=== PATIENT | male | born 1980 | race Caucasian/White ===

== ENCOUNTER 2020-06-05 15:35 | Emergency (ER) | payer MEDICAID ==
[~2020-06-05] VITALS: Ht 177.8 cm; Wt 72.6 kg
[2020-06-05 15:46] VITALS: BP 104/59
[2020-06-05] MEDS ORDERED: cefTRIAXone W LIDOCAINE 1 GM IM IM ONE (16:00)
== END 2020-06-05 16:29 | disposition home or self-care (01) ==
LOC: EDBD 15:35 → ER 15:35
DX: L03.012 Cellulitis of left finger (principal)
CPT/HCPCS: 73130; 96372; 99283; J0696

== ENCOUNTER 2021-03-16 12:23 | Inpatient (IN) | payer MEDICAID ==
[~2021-03-16] VITALS: Ht 180.3 cm; Wt 81.9 kg
[2021-03-16] MEDS ORDERED: SODIUM CHLORIDE 0.9% 500 ML IV ONE (12:30)
[2021-03-16 12:59] LABS: Urine WBC None Seen /hpf (0 - 3)
[2021-03-16 13:07] LABS: Urine Bacteria NONE SEEN /hpf (None Seen); Urine Blood Negative /uL (Negative); Urine Specific Gravity 1.009 (1.001-1.035)
[2021-03-16 13:27] LABS: Alcohol, Urine < 3.0 mg/dL (0-10); Amphetamine Screen, Urine POSITIVE (NEGATIVE); Barbiturate Scree,Urine NEGATIVE (NEGATIVE); Benzodiazephine Screen, Urine NEGATIVE (NEGATIVE); Cannabinoid Screen, Urine POSITIVE (NEGATIVE); Cocaine Screen, Urine NEGATIVE (NEGATIVE)
[2021-03-16 13:39] LABS: Basophils # (auto) 0.1 10 ^3/uL (0-0.2); Basophils % (auto) 1.5 % (0.0-2.0); Eosinophils # (auto) 0.3 10 ^3/uL (0-0.8); Eosinophils % (auto) 3.5 % (0.0-7.0); Hematocrit 39.3 % (41.0-53.0); Hemoglobin 13.4 g/dL (13.5-17.5); Lymphocytes # (auto) 1.2 10 ^3/uL (0.4-5.4); Lymphocytes % (auto) 15.6 % (10.0-50.0); Mean Corpuscular Hemoglobin 31.6 pg (28.0-32.0); Mean Corpuscular Volume 92.9 fL (80.0-100.0); Monocytes # (auto) 0.9 10 ^3/uL (0-1.3); Monocytes % (auto) 10.9 % (0.0-12.0); Neutrophils # (auto) 5.4 10 ^3/uL (1.6-8.6); Neutrophils % (auto) 68.5 % (37.0-80.0); Red Blood Cells 4.23 10^6/uL (4.5-5.90); Red Cell Distribution Width 13.9 % (11.8-14.3); White Blood Cell 7.9 10^3/uL (4.4-10.8)
[2021-03-16 13:41] LABS: Opiate Scree,Urine NEGATIVE (NEGATIVE); Phencyclidine Screen, Urine NEGATIVE (NEGATIVE)
[2021-03-16] MEDS ORDERED: HYDROcodone-ACET 10/325MG TAB ONE (14:21)
[2021-03-16] MEDS ORDERED: HYDROcodone-ACET 10/325MG TAB PO ONE (14:30)
[2021-03-16 14:47] LABS: Alanine Aminotransferase 53 U/L (16-61); Albumin 2.6 g/dL (3.4-5.0); Alkaline Phosphatase 126 U/L (45-117); Anion Gap 6 (5-15); Aspartate Aminotransferase 62 U/L (15-37); BUN/Creatinine Ratio 20.7; Bilirubin, Total 0.9 mg/dL (0.2-1.0); Blood Alcohol < 3.0 mg/dL (0-5); Blood Urea Nitrogen 30 mg/dL (7-18); Calcium 8.1 mg/dL (8.5-10.1); Carbon Dioxide 28 mmol/L (21-32); Chloride 105 mmol/L (98-107); GFR African American 69 mL/min; GFR Non-African American 57 mL/min; Glucose 78 mg/dL (74-106); Potassium 3.2 mmol/L (3.5-5.1); Sodium 139 mmol/L (136-145); Total Protein 6.5 g/dL (6.4-8.2)
[2021-03-16] MEDS ORDERED: CLINDAMYCIN 600MG IV 50 ML IV ONE (16:45)
[2021-03-16] MEDS ORDERED: FUROSEMIDE 40 MG/4 ML VIAL IV ONE (16:45)
[2021-03-16] MEDS ORDERED: POTASSIUM EFFERVESENT TAB 25 MEQ PO ONE (17:30)
[2021-03-16] MEDS ORDERED: NITROGLYCERIN 0.4 MG SL TAB SL PRN (18:15)
[2021-03-16] MEDS ORDERED: ACETAMINOPHEN 500 MG TAB PO PRN (18:15)
[2021-03-16] MEDS ORDERED: MORPHINE SULF INJ 2 MG/ML SYRINGE 1ML IV PRN ×2 (18:15)
[2021-03-16] MEDS ORDERED: ONDANSETRON HCL 4 MG/2 ML VIAL IV PRN (18:15)
[2021-03-16] MEDS: cefTRIAXone 1GM/50ML D5W 50 ML IV SCH (18:35)
[2021-03-16 21:00] VITALS: BP 105/67
[2021-03-16] MEDS: CLINDAMYCIN 300MG IV 50 ML IV SCH (22:23)
[2021-03-16] MEDS: CARVEDILOL 3.125 MG TAB PO SCH (22:24)
[2021-03-17] MEDS ORDERED: ACET250T3 PO (02:19)
[2021-03-17] MEDS ORDERED: POTA10TA51 PO (02:19)
[2021-03-17] MEDS ORDERED: FURO40TA4 PO (02:19)
[2021-03-17] MEDS ORDERED: ASPI-543 PO (02:19)
[2021-03-17] MEDS ORDERED: AMIO200T33 PO (02:19)
[2021-03-17] MEDS ORDERED: CARV3.1240 PO (02:19)
[2021-03-17 05:00] VITALS: BP 117/70
[2021-03-17] MEDS: CLINDAMYCIN 300MG IV 50 ML IV SCH ×3 (06:10→21:47)
[2021-03-17 09:00] VITALS: BP 112/78
[2021-03-17] MEDS: CARVEDILOL 3.125 MG TAB PO SCH ×2 (09:33→21:47)
[2021-03-17] MEDS: AMIODARONE HCL 200 MG TAB PO SCH (09:33)
[2021-03-17] MEDS: POTASSIUM CHLORIDE 8 MEQ TAB PO SCH (09:34)
[2021-03-17] MEDS: cefTRIAXone 1GM/50ML D5W 50 ML IV SCH (09:35)
[2021-03-17] MEDS ORDERED: FUROSEMIDE 40 MG TAB PO SCH (10:00)
[2021-03-17] MEDS: FLORASTOR (S. BOULARDII) 250 MG CAP PO SCH (10:10)
[2021-03-17] MEDS: HYDROcodone-ACET 5/325MG TAB PO PRN ×2 (10:11→23:20)
[2021-03-17 13:00] VITALS: BP 117/66
[2021-03-17] MEDS: FUROSEMIDE 20 MG/2 ML VIAL IV SCH ×3 (13:15→18:00)
[2021-03-17 17:00] VITALS: BP 105/60
[2021-03-17 22:00] VITALS: BP 107/71
[2021-03-17] MEDS ORDERED: FAMOTIDINE 20 MG TAB PO SCH (22:00)
[2021-03-18 04:45] VITALS: BP 117/60
[2021-03-18] MEDS: CLINDAMYCIN 300MG IV 50 ML IV SCH ×3 (05:31→21:31)
[2021-03-18] MEDS: FUROSEMIDE 20 MG/2 ML VIAL IV SCH ×2 (05:32→18:24)
[2021-03-18 06:21] LABS: Basophils # (auto) 0.1 10 ^3/uL (0-0.2); Basophils % (auto) 2.1 % (0.0-2.0); Eosinophils # (auto) 0.3 10 ^3/uL (0-0.8); Eosinophils % (auto) 4.4 % (0.0-7.0); Hematocrit 43.2 % (41.0-53.0); Hemoglobin 14.9 g/dL (13.5-17.5); Lymphocytes # (auto) 1.2 10 ^3/uL (0.4-5.4); Lymphocytes % (auto) 16.7 % (10.0-50.0); Mean Corpuscular Hemoglobin 32.1 pg (28.0-32.0); Mean Corpuscular Hgb Conc. 34.5 g/dL (32.0-36.0); Monocytes # (auto) 0.7 10 ^3/uL (0-1.3); Neutrophils # (auto) 4.7 10 ^3/uL (1.6-8.6); Neutrophils % (auto) 66.8 % (37.0-80.0); Red Blood Cells 4.65 10^6/uL (4.5-5.90); Red Cell Distribution Width 14.1 % (11.8-14.3); White Blood Cell 7.1 10^3/uL (4.4-10.8)
[2021-03-18 06:36] LABS: BUN/Creatinine Ratio 22.8; Calcium 8.5 mg/dL (8.5-10.1); Potassium 3.9 mmol/L (3.5-5.1)
[2021-03-18] MEDS ORDERED: IOHEXOL 350 MG/ML 100ML IJ ONE (07:56)
[2021-03-18 08:15] VITALS: BP 107/73
[2021-03-18 09:00] VITALS: BP 107/73
[2021-03-18] MEDS: FLORASTOR (S. BOULARDII) 250 MG CAP PO SCH (10:11)
[2021-03-18] MEDS: AMIODARONE HCL 200 MG TAB PO SCH (10:11)
[2021-03-18] MEDS: POTASSIUM CHLORIDE 8 MEQ TAB PO SCH (10:11)
[2021-03-18] MEDS: CARVEDILOL 3.125 MG TAB PO SCH ×2 (10:11→21:31)
[2021-03-18] MEDS: cefTRIAXone 1GM/50ML D5W 50 ML IV SCH (10:11)
[2021-03-18] MEDS: ENOXAPARIN SOD 40 MG/0.4 ML SYRINGE SC SCH (10:12)
[2021-03-18 13:00] VITALS: BP 114/75
[2021-03-18] MEDS: HYDROcodone-ACET 5/325MG TAB PO PRN (14:59)
[2021-03-18 16:47] VITALS: BP 115/72
[2021-03-18 22:00] VITALS: BP 112/71
[2021-03-19 05:00] VITALS: BP 105/58
[2021-03-19] MEDS: CLINDAMYCIN 300MG IV 50 ML IV SCH (05:10)
[2021-03-19] MEDS: FUROSEMIDE 20 MG/2 ML VIAL IV SCH (05:10)
[2021-03-19 08:15] VITALS: BP 119/66
[2021-03-19 09:00] VITALS: BP 119/66
[2021-03-19] MEDS: AMIODARONE HCL 200 MG TAB PO SCH (09:53)
[2021-03-19] MEDS: cefTRIAXone 1GM/50ML D5W 50 ML IV SCH (09:53)
[2021-03-19] MEDS: POTASSIUM CHLORIDE 8 MEQ TAB PO SCH (09:54)
[2021-03-19] MEDS: ENOXAPARIN SOD 40 MG/0.4 ML SYRINGE SC SCH (09:54)
[2021-03-19] MEDS: CARVEDILOL 3.125 MG TAB PO SCH (09:54)
[2021-03-19] MEDS: FLORASTOR (S. BOULARDII) 250 MG CAP PO SCH (09:54)
[2021-03-19] MEDS ORDERED: ASPirin 81 mg TAB PO SCH (10:00)
== END 2021-03-19 11:29 | disposition left against medical advice (07) | DRG 194 ==
LOC: EDBD 12:23 → ER 12:23 → TELE 18:05 → TELE-WESTW 20:25
PROVIDERS: ADMIT Nurse Practitioner Acute Care; ATTEND Internal Medicine
DX: I13.0 Hypertensive heart and chronic kidney disease with heart failure and stage 1 through stage 4 chronic kidney disease, or unspecified chronic kidney disease (principal); Q61.3 Polycystic kidney, unspecified; E44.0 Moderate protein-calorie malnutrition; L03.115 Cellulitis of right lower limb; N18.32 Chronic kidney disease, stage 3b; Z20.822 Contact with and (suspected) exposure to COVID-19; E87.6 Hypokalemia; I25.10 Atherosclerotic heart disease of native coronary artery without angina pectoris; E78.5 Hyperlipidemia, unspecified; I25.5 Ischemic cardiomyopathy; I49.3 Ventricular premature depolarization; Z53.29 Procedure and treatment not carried out because of patient's decision for other reasons; F15.10 Other stimulant abuse, uncomplicated; J44.9 Chronic obstructive pulmonary disease, unspecified; Z59.0 Homelessness; Z82.71 Family history of polycystic kidney; Z90.49 Acquired absence of other specified parts of digestive tract; Z95.1 Presence of aortocoronary bypass graft; Z95.810 Presence of automatic (implantable) cardiac defibrillator; I25.2 Old myocardial infarction; Z79.899 Other long term (current) drug therapy; Z68.25 Body mass index [BMI] 25.0-25.9, adult; I50.23 Acute on chronic systolic (congestive) heart failure
CPT/HCPCS: 36415; 71045; 71275; 80048; 80053; 80307; 80320; 81001; 83880; 84484; 85025; 85379; 87081; 87426; 93005; 93306; 93971; 96361; 96365; 96367; 96375; G0378; J0696; J3490

== ENCOUNTER 2021-03-27 16:56 | Emergency (ER) | payer MEDICAID ==
[~2021-03-27] VITALS: Ht 177.8 cm; Wt 77.1 kg
[~2021-03-27 16:56] MED LIST: ACET250T3 PO; AMIO200T33 PO; ASPI-543 PO; CARV3.1240 PO; FURO40TA4 PO; POTA10TA51 PO
[2021-03-27 17:09] VITALS: BP 121/85
== END 2021-03-27 18:27 | disposition left against medical advice (07) ==
LOC: ER 16:56 → EDBD 16:56 → ER 18:27
DX: I13.0 Hypertensive heart and chronic kidney disease with heart failure and stage 1 through stage 4 chronic kidney disease, or unspecified chronic kidney disease (principal); N18.9 Chronic kidney disease, unspecified; I50.9 Heart failure, unspecified; J44.9 Chronic obstructive pulmonary disease, unspecified; F12.10 Cannabis abuse, uncomplicated; Z59.0 Homelessness; Z90.49 Acquired absence of other specified parts of digestive tract

== ENCOUNTER 2021-04-07 05:10 | Emergency (ER) | payer MEDICAID ==
[~2021-04-07] VITALS: Ht 180.3 cm; Wt 79.4 kg
[2021-04-07 05:10] VITALS: BP 134/74
[2021-04-07 08:58] LABS: Basophils # (auto) 0 10 ^3/uL (0-0.2); Basophils % (auto) 0.2 % (0.0-2.0); Eosinophils # (auto) 0 10 ^3/uL (0-0.8); Eosinophils % (auto) 0.5 % (0.0-7.0); Hematocrit 38.3 % (41.0-53.0); Hemoglobin 13.3 g/dL (13.5-17.5); Mean Corpuscular Hemoglobin 32.7 pg (28.0-32.0); Mean Corpuscular Hgb Conc. 34.7 g/dL (32.0-36.0); Mean Corpuscular Volume 94.2 fL (80.0-100.0); Monocytes # (auto) 0.8 10 ^3/uL (0-1.3); Monocytes % (auto) 12.5 % (0.0-12.0); Neutrophils # (auto) 4.7 10 ^3/uL (1.6-8.6); Neutrophils % (auto) 71.8 % (37.0-80.0); Red Blood Cells 4.07 10^6/uL (4.5-5.90); Red Cell Distribution Width 13.6 % (11.8-14.3); White Blood Cell 6.5 10^3/uL (4.4-10.8)
[2021-04-07 09:25] LABS: Chloride 102 mmol/L (98-107); Potassium 3.4 mmol/L (3.5-5.1); Sodium 136 mmol/L (136-145)
[2021-04-07 09:34] LABS: Alanine Aminotransferase 71 U/L (16-61); Albumin 2.9 g/dL (3.4-5.0); Alkaline Phosphatase 109 U/L (45-117); Anion Gap 7 (5-15); Aspartate Aminotransferase 120 U/L (15-37); BUN/Creatinine Ratio 19.8; Bilirubin, Total 1.1 mg/dL (0.2-1.0); Blood Urea Nitrogen 42 mg/dL (7-18); Calcium 8.3 mg/dL (8.5-10.1); Carbon Dioxide 27 mmol/L (21-32); GFR African American 44 mL/min; GFR Non-African American 37 mL/min; Glucose 105 mg/dL (74-106); Magnesium 2.1 mg/dL (1.6-2.6); Total Protein 7.4 g/dL (6.4-8.2)
[2021-04-07 10:01] LABS: Amphetamine Screen, Urine POSITIVE (NEGATIVE); Barbiturate Scree,Urine NEGATIVE (NEGATIVE); Benzodiazephine Screen, Urine NEGATIVE (NEGATIVE); Cannabinoid Screen, Urine POSITIVE (NEGATIVE); Cocaine Screen, Urine NEGATIVE (NEGATIVE); Opiate Scree,Urine NEGATIVE (NEGATIVE); Phencyclidine Screen, Urine NEGATIVE (NEGATIVE)
[2021-04-07] MEDS ORDERED: ASPirin 81 mg TAB PO ONE (10:30)
[2021-04-07] MEDS ORDERED: POTASSIUM EFFERVESENT TAB 25 MEQ PO ONE (10:30)
[2021-04-07] MEDS ORDERED: SODIUM CHLORIDE 0.9% 1,000 ML IV ONE (10:30)
[2021-04-07 10:44] LABS: Urine WBC None Seen /hpf (0 - 3)
[2021-04-07 10:53] LABS: Urine Bacteria NONE SEEN /hpf (None Seen); Urine Blood Negative /uL (Negative); Urine Specific Gravity 1.009 (1.001-1.035)
== END 2021-04-07 12:15 | disposition left against medical advice (07) ==
LOC: ER 05:10 → EDBD 05:10 → ER 12:15
DX: R06.02 Shortness of breath (principal); I25.10 Atherosclerotic heart disease of native coronary artery without angina pectoris; E87.6 Hypokalemia; F15.10 Other stimulant abuse, uncomplicated; F12.10 Cannabis abuse, uncomplicated; F20.9 Schizophrenia, unspecified; R09.89 Other specified symptoms and signs involving the circulatory and respiratory systems; I13.0 Hypertensive heart and chronic kidney disease with heart failure and stage 1 through stage 4 chronic kidney disease, or unspecified chronic kidney disease; N18.30 Chronic kidney disease, stage 3 unspecified; I50.9 Heart failure, unspecified; I48.91 Unspecified atrial fibrillation; I25.2 Old myocardial infarction; E78.5 Hyperlipidemia, unspecified; J44.9 Chronic obstructive pulmonary disease, unspecified; Z95.1 Presence of aortocoronary bypass graft; Z95.0 Presence of cardiac pacemaker; Z90.49 Acquired absence of other specified parts of digestive tract; Z59.0 Homelessness
CPT/HCPCS: 36415; 71046; 80053; 80307; 81001; 83735; 83880; 84443; 84484; 85025; 93005

== ENCOUNTER 2021-04-12 18:30 | Emergency (ER) | payer MEDICAID ==
[~2021-04-12] VITALS: Ht 172.7 cm; Wt 77.1 kg
[2021-04-12 20:09] LABS: Basophils # (auto) 0.1 10 ^3/uL (0-0.2); Basophils % (auto) 0.7 % (0.0-2.0); Eosinophils # (auto) 0.1 10 ^3/uL (0-0.8); Eosinophils % (auto) 1.4 % (0.0-7.0); Hematocrit 38.6 % (41.0-53.0); Hemoglobin 13.1 g/dL (13.5-17.5); Lymphocytes # (auto) 0.8 10 ^3/uL (0.4-5.4); Lymphocytes % (auto) 7.9 % (10.0-50.0); Mean Corpuscular Hemoglobin 32.2 pg (28.0-32.0); Mean Corpuscular Hgb Conc. 33.8 g/dL (32.0-36.0); Mean Corpuscular Volume 95.1 fL (80.0-100.0); Monocytes # (auto) 0.6 10 ^3/uL (0-1.3); Monocytes % (auto) 6.1 % (0.0-12.0); Neutrophils % (auto) 83.9 % (37.0-80.0); Red Blood Cells 4.06 10^6/uL (4.5-5.90); Red Cell Distribution Width 14.4 % (11.8-14.3); White Blood Cell 9.6 10^3/uL (4.4-10.8)
[2021-04-12 20:26] LABS: Albumin 2.9 g/dL (3.4-5.0); BUN/Creatinine Ratio 14.8; Calcium 8.4 mg/dL (8.5-10.1); Potassium 3.7 mmol/L (3.5-5.1)
[2021-04-12 20:36] LABS: Bilirubin, Total 1.2 mg/dL (0.2-1.0); Total Protein 7.3 g/dL (6.4-8.2)
[2021-04-12 22:40] VITALS: BP 114/81
== END 2021-04-13 00:20 | disposition home or self-care (01) ==
LOC: EDBD 18:30 → ER 18:33
DX: R11.2 Nausea with vomiting, unspecified (principal); I25.2 Old myocardial infarction; I11.0 Hypertensive heart disease with heart failure; I50.9 Heart failure, unspecified; I48.91 Unspecified atrial fibrillation; J44.9 Chronic obstructive pulmonary disease, unspecified; F20.9 Schizophrenia, unspecified; Z88.8 Allergy status to other drugs, medicaments and biological substances; Z79.899 Other long term (current) drug therapy; Z95.1 Presence of aortocoronary bypass graft; Z90.49 Acquired absence of other specified parts of digestive tract; Z95.0 Presence of cardiac pacemaker; Z59.0 Homelessness
CPT/HCPCS: 36415; 80053; 80320; 85025; 93005

== ENCOUNTER 2021-06-04 21:03 | Inpatient (IN) | payer MEDICAID ==
[~2021-06-04] VITALS: Ht 170.2 cm; Wt 86.8 kg
[2021-06-04 23:31] LABS: Basophils # (auto) 0 10 ^3/uL (0-0.2); Basophils % (auto) 0.3 % (0.0-2.0); Eosinophils # (auto) 0.1 10 ^3/uL (0-0.8); Hematocrit 38.3 % (41.0-53.0); Hemoglobin 12.6 g/dL (13.5-17.5); Lymphocytes % (auto) 13.1 % (10.0-50.0); Mean Corpuscular Hemoglobin 31.5 pg (28.0-32.0); Mean Corpuscular Hgb Conc. 32.9 g/dL (32.0-36.0); Mean Corpuscular Volume 95.8 fL (80.0-100.0); Monocytes # (auto) 0.6 10 ^3/uL (0-1.3); Monocytes % (auto) 8.1 % (0.0-12.0); Neutrophils # (auto) 6.2 10 ^3/uL (1.6-8.6); Neutrophils % (auto) 77.5 % (37.0-80.0); Red Cell Distribution Width 15.3 % (11.8-14.3)
[2021-06-05 00:02] LABS: Bilirubin, Total 1.5 mg/dL (0.2-1.0); Total Protein 6.8 g/dL (6.4-8.2)
[2021-06-05 00:08] LABS: Albumin 2.5 g/dL (3.4-5.0); BUN/Creatinine Ratio 18.7; Calcium 8.6 mg/dL (8.5-10.1)
[2021-06-05] MEDS ORDERED: FUROSEMIDE 100 MG/10ML VIAL IV ONE (00:30)
[2021-06-05] MEDS ORDERED: SPIRONOLACTONE 25 MG TAB PO ONE (00:30)
[2021-06-05] MEDS ORDERED: IOHEXOL 300 MG/ML 100ML BOTTLE IJ ONE (01:08)
[2021-06-05 03:09] LABS: Urine Bacteria NONE SEEN /hpf (None Seen); Urine Blood Negative /uL (Negative); Urine Mucus FEW (None Seen); Urine Specific Gravity 1.023 (1.001-1.035); Urine WBC 25 /hpf (0 - 3)
[2021-06-05 03:19] LABS: Alcohol, Urine < 3.0 mg/dL (0-10); Amphetamine Screen, Urine POSITIVE (NEGATIVE); Barbiturate Scree,Urine NEGATIVE (NEGATIVE); Benzodiazephine Screen, Urine NEGATIVE (NEGATIVE); Cannabinoid Screen, Urine POSITIVE (NEGATIVE); Cocaine Screen, Urine NEGATIVE (NEGATIVE); Opiate Scree,Urine NEGATIVE (NEGATIVE); Phencyclidine Screen, Urine NEGATIVE (NEGATIVE)
[2021-06-05] MEDS ORDERED: levoFLOXacin 500MG 100 ML IV ONE (03:30)
[2021-06-05] MEDS ORDERED: ALBUMIN 25% 50 ML IV ONE (06:30)
[2021-06-05] MEDS ORDERED: NITROGLYCERIN 0.4 MG SL TAB SL PRN (06:30)
[2021-06-05] MEDS ORDERED: ACETAMINOPHEN 325 MG TAB PO PRN (06:30)
[2021-06-05] MEDS ORDERED: DOCUSATE SOD 100 MG CAP PO PRN (06:30)
[2021-06-05] MEDS ORDERED: ONDANSETRON HCL 4 MG/2 ML VIAL IV PRN (06:30)
[2021-06-05] MEDS ORDERED: MORPHINE SULFATE INJECTION 2 MG/ML SYRG IV PRN ×2 (06:30)
[2021-06-05] MEDS ORDERED: HYDROcodone-ACET 5/325MG TAB PO PRN (06:30)
[2021-06-05 07:46] LABS: Basophils # (auto) 0.1 10 ^3/uL (0-0.2); Basophils % (auto) 1.5 % (0.0-2.0); Eosinophils # (auto) 0.1 10 ^3/uL (0-0.8); Eosinophils % (auto) 1.3 % (0.0-7.0); Hematocrit 37.8 % (41.0-53.0); Hemoglobin 12.5 g/dL (13.5-17.5); Lymphocytes # (auto) 0.8 10 ^3/uL (0.4-5.4); Lymphocytes % (auto) 11.9 % (10.0-50.0); Mean Corpuscular Hemoglobin 31.6 pg (28.0-32.0); Mean Corpuscular Hgb Conc. 33.1 g/dL (32.0-36.0); Mean Corpuscular Volume 95.4 fL (80.0-100.0); Monocytes # (auto) 0.6 10 ^3/uL (0-1.3); Monocytes % (auto) 8.7 % (0.0-12.0); Neutrophils # (auto) 5.2 10 ^3/uL (1.6-8.6); Neutrophils % (auto) 76.6 % (37.0-80.0); Nucleated Red Blood Cells % 0.1 %; Red Blood Cells 3.96 10^6/uL (4.5-5.90); Red Cell Distribution Width 15.3 % (11.8-14.3); White Blood Cell 6.8 10^3/uL (4.4-10.8)
[2021-06-05 07:54] LABS: Albumin 2.5 g/dL (3.4-5.0); BUN/Creatinine Ratio 20.7; Calcium 8.8 mg/dL (8.5-10.1); Potassium 3.7 mmol/L (3.5-5.1)
[2021-06-05 07:58] LABS: Bilirubin, Total 1.8 mg/dL (0.2-1.0); Total Protein 6.9 g/dL (6.4-8.2)
[2021-06-05] MEDS ORDERED: ZINC SULFATE 220mg CAP or TAB PO SCH (10:00)
[2021-06-05] MEDS ORDERED: FAMOTIDINE (10MG/ML) 2ML VL IV SCH (10:00)
[2021-06-05] MEDS ORDERED: ASCORBIC ACID 500 MG TAB PO SCH (10:00)
[2021-06-05] MEDS ORDERED: ASPirin 81 mg TAB PO SCH (10:00)
[2021-06-05] MEDS ORDERED: MULTIPLE VITAMIN TAB PO SCH (10:00)
[2021-06-05] MEDS ORDERED: SODIUM CHLOR 0.9% PF (SALINE LOCK) 10ML VIAL/SYR IV SCH (14:00)
[2021-06-05] MEDS ORDERED: FUROSEMIDE 40 MG/4 ML VIAL IV SCH (18:00)
[2021-06-05] MEDS ORDERED: ATORVASTATIN 20 MG TAB PO SCH (22:00)
== END 2021-06-05 13:10 | disposition left against medical advice (07) | DRG 194 ==
LOC: EDBD 21:04 → ER 21:04 → OVERFLOW 06-05 06:27
PROVIDERS: ADMIT Nurse Practitioner Family; ATTEND Nurse Practitioner
DX: I13.0 Hypertensive heart and chronic kidney disease with heart failure and stage 1 through stage 4 chronic kidney disease, or unspecified chronic kidney disease (principal); E88.09 Other disorders of plasma-protein metabolism, not elsewhere classified; R18.8 Other ascites; Q61.3 Polycystic kidney, unspecified; I50.43 Acute on chronic combined systolic (congestive) and diastolic (congestive) heart failure; F20.9 Schizophrenia, unspecified; I48.91 Unspecified atrial fibrillation; J44.9 Chronic obstructive pulmonary disease, unspecified; N18.30 Chronic kidney disease, stage 3 unspecified; N20.0 Calculus of kidney; N43.3 Hydrocele, unspecified; F19.10 Other psychoactive substance abuse, uncomplicated; N49.2 Inflammatory disorders of scrotum; Z59.00 Homelessness unspecified; I25.2 Old myocardial infarction; Z79.899 Other long term (current) drug therapy; Z82.71 Family history of polycystic kidney; Z95.1 Presence of aortocoronary bypass graft; Z95.810 Presence of automatic (implantable) cardiac defibrillator; Z90.49 Acquired absence of other specified parts of digestive tract
CPT/HCPCS: 36415; 74177; 76870; 80053; 80061; 80307; 80320; 81001; 83880; 85025; 87426; 96365; 96366; 96367; 96375; 96376; 99291; G0378; J1956; J3490

== ENCOUNTER 2021-06-07 17:50 | Inpatient (IN) | payer MEDICAID ==
[~2021-06-07] VITALS: Ht 177.8 cm; Wt 104.0 kg
[2021-06-07 19:40] LABS: Basophils # (auto) 0.1 10 ^3/uL (0-0.2); Basophils % (auto) 1.2 % (0.0-2.0); Eosinophils # (auto) 0 10 ^3/uL (0-0.8); Eosinophils % (auto) 0.5 % (0.0-7.0); Hematocrit 40.1 % (41.0-53.0); Hemoglobin 13.3 g/dL (13.5-17.5); Lymphocytes # (auto) 0.7 10 ^3/uL (0.4-5.4); Lymphocytes % (auto) 9.1 % (10.0-50.0); Mean Corpuscular Hemoglobin 31.6 pg (28.0-32.0); Mean Corpuscular Hgb Conc. 33.1 g/dL (32.0-36.0); Mean Corpuscular Volume 95.4 fL (80.0-100.0); Monocytes # (auto) 0.7 10 ^3/uL (0-1.3); Monocytes % (auto) 8.9 % (0.0-12.0); Neutrophils # (auto) 6.4 10 ^3/uL (1.6-8.6); Neutrophils % (auto) 80.3 % (37.0-80.0); Nucleated Red Blood Cells % 0.2 %; Red Blood Cells 4.21 10^6/uL (4.5-5.90)
[2021-06-07 19:48] LABS: Albumin 2.8 g/dL (3.4-5.0); Calcium 8.8 mg/dL (8.5-10.1); Potassium 4.5 mmol/L (3.5-5.1)
[2021-06-07 19:54] LABS: BUN/Creatinine Ratio 26.5; Bilirubin, Total 1.8 mg/dL (0.2-1.0); Total Protein 7.4 g/dL (6.4-8.2)
[2021-06-07 19:56] LABS: INR 1.13 (0.9-1.15)
[2021-06-07] MEDS ORDERED: FUROSEMIDE 40 MG/4 ML VIAL IV ONE (21:45)
[2021-06-07] MEDS ORDERED: METOPROLOL TARTRATE 1MG/1ML-5ML VIAL IV PRN (22:30)
[2021-06-07] MEDS ORDERED: MORPHINE SULFATE INJECTION 2 MG/ML SYRG IV PRN (22:30)
[2021-06-07] MEDS ORDERED: ONDANSETRON HCL 4 MG/2 ML VIAL IV PRN (22:30)
[2021-06-08 07:23] LABS: Basophils # (auto) 0.1 10 ^3/uL (0-0.2); Basophils % (auto) 1.2 % (0.0-2.0); Eosinophils # (auto) 0.1 10 ^3/uL (0-0.8); Eosinophils % (auto) 1.1 % (0.0-7.0); Hematocrit 37.2 % (41.0-53.0); Hemoglobin 12.7 g/dL (13.5-17.5); Lymphocytes # (auto) 0.7 10 ^3/uL (0.4-5.4); Lymphocytes % (auto) 10.6 % (10.0-50.0); Mean Corpuscular Hemoglobin 32.4 pg (28.0-32.0); Mean Corpuscular Hgb Conc. 34.2 g/dL (32.0-36.0); Mean Corpuscular Volume 94.9 fL (80.0-100.0); Monocytes # (auto) 0.6 10 ^3/uL (0-1.3); Monocytes % (auto) 9.3 % (0.0-12.0); Neutrophils # (auto) 5.4 10 ^3/uL (1.6-8.6); Neutrophils % (auto) 77.8 % (37.0-80.0); Nucleated Red Blood Cells % 0.1 %; Red Blood Cells 3.92 10^6/uL (4.5-5.90); White Blood Cell 6.9 10^3/uL (4.4-10.8)
[2021-06-08 07:27] LABS: Albumin 2.6 g/dL (3.4-5.0); Potassium 3.6 mmol/L (3.5-5.1)
[2021-06-08 07:32] LABS: Bilirubin, Total 2.3 mg/dL (0.2-1.0)
[2021-06-08] MEDS: FUROSEMIDE 40 MG/4 ML VIAL IV SCH ×2 (10:49→22:15)
[2021-06-08] MEDS ORDERED: POTA1TAB4 PO (11:48)
[2021-06-08] MEDS ORDERED: ONDA-188 PO (11:48)
[2021-06-08 17:00] VITALS: BP 117/73
[2021-06-08 20:00] VITALS: BP 112/83
[2021-06-08 22:00] VITALS: BP 112/83
[2021-06-08] MEDS: ATORVASTATIN 20 MG TAB PO SCH (22:15)
[2021-06-09 05:00] VITALS: BP 117/78
[2021-06-09 05:52] LABS: Basophils # (auto) 0.1 10 ^3/uL (0-0.2); Basophils % (auto) 0.8 % (0.0-2.0); Eosinophils # (auto) 0.1 10 ^3/uL (0-0.8); Eosinophils % (auto) 1.6 % (0.0-7.0); Hematocrit 36.3 % (41.0-53.0); Hemoglobin 12.5 g/dL (13.5-17.5); Lymphocytes # (auto) 0.9 10 ^3/uL (0.4-5.4); Lymphocytes % (auto) 11.8 % (10.0-50.0); Mean Corpuscular Hemoglobin 32.6 pg (28.0-32.0); Mean Corpuscular Hgb Conc. 34.3 g/dL (32.0-36.0); Mean Corpuscular Volume 95.1 fL (80.0-100.0); Monocytes # (auto) 0.9 10 ^3/uL (0-1.3); Monocytes % (auto) 11.1 % (0.0-12.0); Neutrophils # (auto) 5.8 10 ^3/uL (1.6-8.6); Neutrophils % (auto) 74.7 % (37.0-80.0); Red Blood Cells 3.82 10^6/uL (4.5-5.90); Red Cell Distribution Width 14.5 % (11.8-14.3); White Blood Cell 7.7 10^3/uL (4.4-10.8)
[2021-06-09 06:14] LABS: Potassium 3.6 mmol/L (3.5-5.1)
[2021-06-09 06:25] LABS: Albumin 2.4 g/dL (3.4-5.0); BUN/Creatinine Ratio 28.4; Calcium 8.4 mg/dL (8.5-10.1); Total Protein 6.4 g/dL (6.4-8.2)
[2021-06-09 09:00] VITALS: BP 116/72
[2021-06-09] MEDS: FUROSEMIDE 40 MG/4 ML VIAL IV SCH (09:52)
[2021-06-09] MEDS: METOPROLOL SUCCINATE XL 50 MG TAB PO SCH (09:52)
[2021-06-09] MEDS: ASPirin 81 mg TAB PO SCH (09:52)
[2021-06-09 13:00] VITALS: BP 95/67
[2021-06-09 16:58] VITALS: BP 109/79
[2021-06-09 20:00] VITALS: BP 117/69
[2021-06-09 22:00] VITALS: BP 113/69
[2021-06-10] MEDS: FUROSEMIDE 40 MG/4 ML VIAL IV SCH ×3 (00:35→22:16)
[2021-06-10] MEDS: ATORVASTATIN 20 MG TAB PO SCH ×2 (00:35→22:17)
[2021-06-10 05:00] VITALS: BP 109/70
[2021-06-10 08:57] VITALS: BP 110/67
[2021-06-10] MEDS: ASPirin 81 mg TAB PO SCH (10:05)
[2021-06-10] MEDS: METOPROLOL SUCCINATE XL 50 MG TAB PO SCH (10:06)
[2021-06-10 11:59] VITALS: BP 91/61
[2021-06-10 16:41] VITALS: BP 110/76
[2021-06-10 20:00] VITALS: BP 108/74
[2021-06-10 23:08] VITALS: BP 108/74
[2021-06-11 05:00] VITALS: BP 108/68
[2021-06-11 09:00] VITALS: BP 101/56
[2021-06-11] MEDS: ASPirin 81 mg TAB PO SCH (10:00)
[2021-06-11] MEDS: FUROSEMIDE 40 MG/4 ML VIAL IV SCH (10:00)
[2021-06-11] MEDS: METOPROLOL SUCCINATE XL 50 MG TAB PO SCH (10:00)
[2021-06-11 13:00] VITALS: BP 144/64
[2021-06-11 16:35] VITALS: BP 111/83
== END 2021-06-11 19:00 | disposition home or self-care (01) | DRG 194 ==
LOC: ER 17:50 → EDBD 17:50 → TELE 22:21 → TELE-WESTW 06-08 16:21
PROVIDERS: ADMIT Internal Medicine; ATTEND Internal Medicine
DX: I13.0 Hypertensive heart and chronic kidney disease with heart failure and stage 1 through stage 4 chronic kidney disease, or unspecified chronic kidney disease (principal); E44.0 Moderate protein-calorie malnutrition; Z95.1 Presence of aortocoronary bypass graft; I42.8 Other cardiomyopathies; E78.5 Hyperlipidemia, unspecified; I48.91 Unspecified atrial fibrillation; F19.90 Other psychoactive substance use, unspecified, uncomplicated; I50.33 Acute on chronic diastolic (congestive) heart failure; F20.9 Schizophrenia, unspecified; J44.9 Chronic obstructive pulmonary disease, unspecified; N18.9 Chronic kidney disease, unspecified; Z20.822 Contact with and (suspected) exposure to COVID-19; I25.10 Atherosclerotic heart disease of native coronary artery without angina pectoris; Z59.00 Homelessness unspecified; Z91.19 Patient's noncompliance with other medical treatment and regimen; Z95.810 Presence of automatic (implantable) cardiac defibrillator; Z90.49 Acquired absence of other specified parts of digestive tract; Z88.8 Allergy status to other drugs, medicaments and biological substances
CPT/HCPCS: 36415; 36600; 71045; 80053; 82805; 83880; 84484; 85025; 85610; 87426; 93005; 96374; G0378

== ENCOUNTER 2022-04-03 21:10 | Inpatient (IN) | payer MEDICAID ==
[~2022-04-03] VITALS: Ht 170.2 cm; Wt 65.0 kg
[~2022-04-03 21:10] MED LIST changes: -ACET250T3 PO; +ONDA-188 PO; -POTA10TA51 PO; +POTA1TAB4 PO
[2022-04-03] MEDS ORDERED: MECLIZINE HCL 25 MG TAB PO ONE (23:00)
[2022-04-03 23:32] LABS: Basophils # (auto) 0 10 ^3/uL (0-0.2); Basophils % (auto) 0.7 % (0.0-2.0); Eosinophils # (auto) 0.1 10 ^3/uL (0-0.8); Eosinophils % (auto) 0.8 % (0.0-7.0); Lymphocytes # (auto) 0.9 10 ^3/uL (0.4-5.4); Mean Corpuscular Hemoglobin 29.6 pg (28.0-32.0); Mean Corpuscular Hgb Conc. 34.2 g/dL (32.0-36.0); Mean Corpuscular Volume 86.6 fL (80.0-100.0); Monocytes # (auto) 0.4 10 ^3/uL (0-1.3); Monocytes % (auto) 5.9 % (0.0-12.0); Neutrophils # (auto) 5.2 10 ^3/uL (1.6-8.6); Neutrophils % (auto) 79.6 % (37.0-80.0); Nucleated Red Blood Cells % 0.1 %; Red Blood Cells 4.74 10^6/uL (4.5-5.90); Red Cell Distribution Width 13.6 % (11.8-14.3); White Blood Cell 6.6 10^3/uL (4.4-10.8)
[2022-04-04 00:26] LABS: Albumin 3.8 g/dL (3.4-5.0); Potassium 4.2 mmol/L (3.5-5.1)
[2022-04-04 00:28] LABS: BUN/Creatinine Ratio 14.5
[2022-04-04 00:32] LABS: Bilirubin, Total 2.1 mg/dL (0.2-1.0)
[2022-04-04] MEDS ORDERED: ONDANSETRON HCL 4 MG/2 ML VIAL IV ONE (00:45)
[2022-04-04] MEDS ORDERED: ONDANSETRON HCL 4 MG/2 ML VIAL IV PRN (04:15)
[2022-04-04] MEDS ORDERED: MORPHINE SULFATE INJ 2 MG/ml SYRG IV PRN (04:15)
[2022-04-04] MEDS ORDERED: NITROGLYCERIN 0.4 MG SL TAB SL PRN (04:15)
[2022-04-04] MEDS ORDERED: ACETAMINOPHEN 325 MG TAB PO PRN (04:15)
[2022-04-04 06:38] LABS: Basophils # (auto) 0.1 10 ^3/uL (0-0.2); Basophils % (auto) 0.9 % (0.0-2.0); Eosinophils # (auto) 0.1 10 ^3/uL (0-0.8); Eosinophils % (auto) 2.5 % (0.0-7.0); Hematocrit 37.2 % (41.0-53.0); Hemoglobin 12.4 g/dL (13.5-17.5); Lymphocytes # (auto) 1.5 10 ^3/uL (0.4-5.4); Lymphocytes % (auto) 24.4 % (10.0-50.0); Mean Corpuscular Hemoglobin 28.7 pg (28.0-32.0); Mean Corpuscular Hgb Conc. 33.3 g/dL (32.0-36.0); Mean Corpuscular Volume 86.2 fL (80.0-100.0); Monocytes # (auto) 0.5 10 ^3/uL (0-1.3); Monocytes % (auto) 8.6 % (0.0-12.0); Neutrophils # (auto) 3.8 10 ^3/uL (1.6-8.6); Neutrophils % (auto) 63.6 % (37.0-80.0); Nucleated Red Blood Cells % 0.1 %; Red Blood Cells 4.31 10^6/uL (4.5-5.90); Red Cell Distribution Width 13.3 % (11.8-14.3)
[2022-04-04 06:40] LABS: Albumin 3.4 g/dL (3.4-5.0); BUN/Creatinine Ratio 14.3; Calcium 9.3 mg/dL (8.5-10.1); Potassium 4.1 mmol/L (3.5-5.1)
[2022-04-04 06:43] LABS: Bilirubin, Total 1.6 mg/dL (0.2-1.0); Total Protein 6.5 g/dL (6.4-8.2)
[2022-04-04 07:50] LABS: Urine Bacteria FEW /hpf (None Seen); Urine Blood 1+ /uL (Negative); Urine Mucus FEW (None Seen); Urine Specific Gravity 1.018 (1.001-1.035); Urine WBC 3 /hpf (0 - 3)
[2022-04-04 08:00] LABS: Alcohol, Urine < 3.0 mg/dL (0-10); Amphetamine Screen, Urine POSITIVE (NEGATIVE); Barbiturate Scree,Urine NEGATIVE (NEGATIVE); Benzodiazephine Screen, Urine NEGATIVE (NEGATIVE); Cannabinoid Screen, Urine POSITIVE (NEGATIVE); Cocaine Screen, Urine NEGATIVE (NEGATIVE); Opiate Scree,Urine NEGATIVE (NEGATIVE); Phencyclidine Screen, Urine NEGATIVE (NEGATIVE)
[2022-04-04 08:04] VITALS: BP 109/69
[2022-04-04] MEDS ORDERED: AMIODARONE HCL 200 MG TAB PO SCH (22:00)
[2022-04-04] MEDS ORDERED: CARVEDILOL 3.125 MG TAB PO SCH (22:00)
[2022-04-05] MEDS ORDERED: ASPirin-EC 81 mg tab PO SCH (10:00)
[2022-04-05] MEDS ORDERED: FUROSEMIDE 40 MG TAB PO SCH (10:00)
== END 2022-04-04 09:13 | disposition left against medical advice (07) | DRG 206 ==
LOC: EDBD 21:10 → ER 21:10 → OVERFLOW 04-04 04:15
PROVIDERS: ADMIT Internal Medicine; ATTEND Internal Medicine
DX: T82.118A Breakdown (mechanical) of other cardiac electronic device, initial encounter (principal); I13.0 Hypertensive heart and chronic kidney disease with heart failure and stage 1 through stage 4 chronic kidney disease, or unspecified chronic kidney disease; I50.9 Heart failure, unspecified; D64.9 Anemia, unspecified; R55 Syncope and collapse; F20.9 Schizophrenia, unspecified; I48.91 Unspecified atrial fibrillation; Z20.822 Contact with and (suspected) exposure to COVID-19; I44.5 Left posterior fascicular block; J44.9 Chronic obstructive pulmonary disease, unspecified; N18.9 Chronic kidney disease, unspecified; Z53.29 Procedure and treatment not carried out because of patient's decision for other reasons; Y83.8 Other surgical procedures as the cause of abnormal reaction of the patient, or of later complication, without mention of misadventure at the time of the procedure; Z95.1 Presence of aortocoronary bypass graft; Z59.00 Homelessness unspecified; Z88.8 Allergy status to other drugs, medicaments and biological substances; Z90.49 Acquired absence of other specified parts of digestive tract; Y92.89 Other specified places as the place of occurrence of the external cause
CPT/HCPCS: 36415; 71046; 80053; 80307; 81001; 83735; 83880; 84484; 85025; 85610; 85730; G0378

== ENCOUNTER 2022-04-08 11:54 | Emergency (ER) | payer MEDICAID ==
[~2022-04-08] VITALS: Ht 180.3 cm; Wt 79.5 kg
[2022-04-08 12:27] LABS: Basophils # (auto) 0 10 ^3/uL (0-0.2); Basophils % (auto) 0.7 % (0.0-2.0); Eosinophils # (auto) 0.1 10 ^3/uL (0-0.8); Eosinophils % (auto) 2.1 % (0.0-7.0); Mean Corpuscular Hemoglobin 28.7 pg (28.0-32.0); Mean Corpuscular Hgb Conc. 33.3 g/dL (32.0-36.0); Mean Corpuscular Volume 86.2 fL (80.0-100.0); Monocytes # (auto) 0.6 10 ^3/uL (0-1.3); Monocytes % (auto) 9.5 % (0.0-12.0); Neutrophils # (auto) 4.3 10 ^3/uL (1.6-8.6); Neutrophils % (auto) 70.7 % (37.0-80.0); Red Blood Cells 4.52 10^6/uL (4.5-5.90); Red Cell Distribution Width 13.3 % (11.8-14.3); White Blood Cell 6.1 10^3/uL (4.4-10.8)
[2022-04-08 13:19] LABS: Albumin 3.2 g/dL (3.4-5.0); Calcium 9.1 mg/dL (8.5-10.1); Potassium 4.2 mmol/L (3.5-5.1)
[2022-04-08 13:21] LABS: Urine Bacteria FEW /hpf (None Seen); Urine Blood Negative /uL (Negative); Urine Mucus FEW (None Seen); Urine Specific Gravity 1.015 (1.001-1.035); Urine WBC 2 /hpf (0 - 3)
[2022-04-08 13:21] LABS: BUN/Creatinine Ratio 14.7
[2022-04-08 13:32] LABS: Bilirubin, Total 1.2 mg/dL (0.2-1.0); Total Protein 6.5 g/dL (6.4-8.2)
[2022-04-08 14:13] LABS: Amphetamine Screen, Urine POSITIVE (NEGATIVE); Barbiturate Scree,Urine NEGATIVE (NEGATIVE); Benzodiazephine Screen, Urine NEGATIVE (NEGATIVE); Cannabinoid Screen, Urine POSITIVE (NEGATIVE); Cocaine Screen, Urine NEGATIVE (NEGATIVE); Opiate Scree,Urine NEGATIVE (NEGATIVE); Phencyclidine Screen, Urine NEGATIVE (NEGATIVE)
[2022-04-08 16:00] VITALS: BP 102/66
[2022-04-08] MEDS ORDERED: POTA10TA51 PO (17:00)
[2022-04-08] MEDS ORDERED: AMIO200T33 PO (17:00)
[2022-04-08] MEDS ORDERED: CARV3.1240 PO (17:00)
[2022-04-08] MEDS ORDERED: FURO1TAB33 PO (17:00)
[2022-04-08] MEDS ORDERED: LORA0.5T20 PO (17:00)
== END 2022-04-08 14:37 | disposition home or self-care (01) ==
LOC: ER 11:54 → EDBD 11:54 → ER 14:37
DX: R55 Syncope and collapse (principal); I13.0 Hypertensive heart and chronic kidney disease with heart failure and stage 1 through stage 4 chronic kidney disease, or unspecified chronic kidney disease; N18.9 Chronic kidney disease, unspecified; I50.9 Heart failure, unspecified; I48.91 Unspecified atrial fibrillation; I25.2 Old myocardial infarction; J44.9 Chronic obstructive pulmonary disease, unspecified; E78.5 Hyperlipidemia, unspecified; Z95.1 Presence of aortocoronary bypass graft; Z95.0 Presence of cardiac pacemaker; Z90.49 Acquired absence of other specified parts of digestive tract; Z79.82 Long term (current) use of aspirin; Z79.899 Other long term (current) drug therapy; Z88.8 Allergy status to other drugs, medicaments and biological substances
CPT/HCPCS: 36415; 70450; 71045; 80053; 80307; 81001; 84484; 85025; 93005

== ENCOUNTER 2022-04-29 20:17 | Inpatient (IN) | payer MEDICAID ==
[~2022-04-29] VITALS: Ht 177.8 cm; Wt 75.6 kg
[~2022-04-29 20:17] MED LIST changes: +FURO1TAB33 PO; +LORA0.5T20 PO; +POTA10TA51 PO
[2022-04-29] MEDS ORDERED: dilTIAZem HCL 50 MG/10 ML VIAL IV ONE ×2 (20:18→20:45)
[2022-04-29] MEDS ORDERED: KETAMINE HCL 10 ML ONE (20:21)
[2022-04-29] MEDS ORDERED: AMIODARONE HCL 150 MG in D5W 5% 100 ML IV ONE (20:45)
[2022-04-29] MEDS ORDERED: dilTIAZem 25 MG/5 ML VIAL IV ONE ×3 (20:45→21:00)
[2022-04-29] MEDS ORDERED: AMIODARONE 450mg/250ml AE 250 ML IV SCH (21:00)
[2022-04-29] MEDS ORDERED: KETAMINE 50mg/ML 10ml Vial (500mg/10ml) IV ONE (21:00)
[2022-04-29 22:31] LABS: Basophils # (auto) 0.1 10 ^3/uL (0-0.2); Basophils % (auto) 0.4 % (0.0-2.0); Eosinophils # (auto) 0 10 ^3/uL (0-0.8); Hematocrit 39.1 % (41.0-53.0); Hemoglobin 12.8 g/dL (13.5-17.5); Lymphocytes # (auto) 0.7 10 ^3/uL (0.4-5.4); Lymphocytes % (auto) 5.5 % (10.0-50.0); Mean Corpuscular Hemoglobin 28.1 pg (28.0-32.0); Mean Corpuscular Hgb Conc. 32.8 g/dL (32.0-36.0); Mean Corpuscular Volume 85.5 fL (80.0-100.0); Monocytes # (auto) 0.8 10 ^3/uL (0-1.3); Monocytes % (auto) 5.8 % (0.0-12.0); Neutrophils # (auto) 11.7 10 ^3/uL (1.6-8.6); Neutrophils % (auto) 88.3 % (37.0-80.0); Nucleated Red Blood Cells % 0.1 %; Red Blood Cells 4.57 10^6/uL (4.5-5.90); Red Cell Distribution Width 12.7 % (11.8-14.3); White Blood Cell 13.3 10^3/uL (4.4-10.8)
[2022-04-29 22:40] LABS: Albumin 3.5 g/dL (3.4-5.0); Calcium 9.1 mg/dL (8.5-10.1); Magnesium 2.3 mg/dL (1.6-2.6); Potassium 5.3 mmol/L (3.5-5.1)
[2022-04-29 22:42] LABS: BUN/Creatinine Ratio 20.5
[2022-04-29 22:44] LABS: Bilirubin, Total 0.8 mg/dL (0.2-1.0); Total Protein 7.9 g/dL (6.4-8.2)
[2022-04-29] MEDS ORDERED: DEXTROSE (50%) 50ML SYRG IV PRN (23:15)
[2022-04-29] MEDS ORDERED: DOCUSATE SOD 100 MG CAP PO PRN (23:15)
[2022-04-29] MEDS ORDERED: DEXTROSE (50%) 50ML SYRG IV ONE (23:15)
[2022-04-29] MEDS ORDERED: InsuLIN REG 1unit/0.01ml Soln (100units/ml) IV ONE (23:15)
[2022-04-29] MEDS ORDERED: ONDANSETRON HCL 4 MG/2 ML VIAL IV PRN (23:15)
[2022-04-29] MEDS ORDERED: HYDROcodone-ACET 5/325MG TAB PO PRN (23:15)
[2022-04-29] MEDS ORDERED: FUROSEMIDE 40 MG/4 ML VIAL IV ONE (23:15)
[2022-04-29] MEDS ORDERED: ACETAMINOPHEN 325 MG TAB PO PRN (23:15)
[2022-04-29] MEDS ORDERED: cefTRIAXone 1GM/50ML D5W 50 ML IV ONE (23:15)
[2022-04-29] MEDS ORDERED: MORPHINE SULFATE INJ 2 MG/ml SYRG IV PRN (23:30)
[2022-04-29] MEDS ORDERED: NITROGLYCERIN 0.4 MG SL TAB SL PRN (23:30)
[2022-04-30] VITALS (14 sets, daily range): BP systolic 78–114; BP diastolic 46–80
[2022-04-30] MEDS ORDERED: HEPARIN SODIUM (PORCINE) 5000 UNITS/ML 1ML VIAL SC ONE (01:00)
[2022-04-30] MEDS ORDERED: HEPARIN SODIUM (PORCINE) 5000 UNITS/ML 1ML VIAL ONE ×2 (01:36→22:00)
[2022-04-30] MEDS ORDERED: AMIODARONE 450mg/250ml AE 250 ML IV SCH (03:00)
[2022-04-30] MEDS: SODIUM CHLOR 0.9% PF (SALINE LOCK) 10ML VIAL/SYR IV SCH ×3 (06:28→22:07)
[2022-04-30] MEDS: ACCU-CHEK COMFORT CURVE STRIP VI SCH ×4 (06:59→22:16)
[2022-04-30] MEDS: InsuLIN REG 1unit/0.01ml Soln (100units/ml) SC SCH ×4 (06:59→22:00)
[2022-04-30 08:38] LABS: Basophils # (auto) 0 10 ^3/uL (0-0.2); Basophils % (auto) 0.3 % (0.0-2.0); Eosinophils # (auto) 0.1 10 ^3/uL (0-0.8); Eosinophils % (auto) 0.9 % (0.0-7.0); Hemoglobin 11.1 g/dL (13.5-17.5); Lymphocytes # (auto) 2.2 10 ^3/uL (0.4-5.4); Lymphocytes % (auto) 18.3 % (10.0-50.0); Mean Corpuscular Hemoglobin 27.6 pg (28.0-32.0); Mean Corpuscular Hgb Conc. 32.6 g/dL (32.0-36.0); Mean Corpuscular Volume 84.5 fL (80.0-100.0); Monocytes # (auto) 0.9 10 ^3/uL (0-1.3); Monocytes % (auto) 7.9 % (0.0-12.0); Neutrophils # (auto) 8.7 10 ^3/uL (1.6-8.6); Neutrophils % (auto) 72.6 % (37.0-80.0); Red Blood Cells 4.03 10^6/uL (4.5-5.90); White Blood Cell 11.9 10^3/uL (4.4-10.8)
[2022-04-30 08:50] LABS: Albumin 3.1 g/dL (3.4-5.0); BUN/Creatinine Ratio 22.8; Calcium 8.7 mg/dL (8.5-10.1); Potassium 3.7 mmol/L (3.5-5.1)
[2022-04-30 08:52] LABS: Bilirubin, Total 0.7 mg/dL (0.2-1.0); Total Protein 6.5 g/dL (6.4-8.2)
[2022-04-30 09:32] LABS: Amphetamine Screen, Urine NEGATIVE (NEGATIVE); Barbiturate Scree,Urine NEGATIVE (NEGATIVE); Benzodiazephine Screen, Urine NEGATIVE (NEGATIVE); Cannabinoid Screen, Urine NEGATIVE (NEGATIVE); Cocaine Screen, Urine NEGATIVE (NEGATIVE); Opiate Scree,Urine NEGATIVE (NEGATIVE); Phencyclidine Screen, Urine NEGATIVE (NEGATIVE)
[2022-04-30] MEDS ORDERED: CARVEDILOL 3.125 MG TAB PO SCH (10:00)
[2022-04-30] MEDS: ASPirin 81 mg TAB PO SCH (10:38)
[2022-04-30] MEDS: HEPARIN SODIUM (PORCINE) 5000 UNITS/ML 1ML VIAL SC SCH ×2 (10:39→22:06)
[2022-04-30] MEDS: FUROSEMIDE 40 MG/4 ML VIAL IV SCH (10:39)
[2022-04-30] MEDS: FAMOTIDINE (10MG/ML) 2ML VL IV SCH ×2 (10:39→21:39)
[2022-04-30] MEDS: methIMAzole 5 MG TAB PO SCH ×2 (14:31→22:02)
[2022-04-30] MEDS: MEXILETINE HYDROCHLORIDE 150 MG CAP PO SCH ×2 (14:32→22:04)
[2022-04-30] MEDS: cefTRIAXone 1GM/50ML D5W 50 ML IV SCH (21:21)
[2022-04-30] MEDS: CARVEDILOL 12.5 MG TAB PO SCH (22:03)
[2022-05-01] VITALS (11 sets, daily range): BP systolic 81–102; BP diastolic 54–71
[2022-05-01] MEDS: MEXILETINE HYDROCHLORIDE 150 MG CAP PO SCH ×3 (05:31→20:36)
[2022-05-01] MEDS: SODIUM CHLOR 0.9% PF (SALINE LOCK) 10ML VIAL/SYR IV SCH ×3 (05:31→20:35)
[2022-05-01] MEDS: methIMAzole 5 MG TAB PO SCH ×3 (05:32→20:35)
[2022-05-01] MEDS: InsuLIN REG 1unit/0.01ml Soln (100units/ml) SC SCH ×4 (06:41→22:00)
[2022-05-01] MEDS: ACCU-CHEK COMFORT CURVE STRIP VI SCH ×4 (06:41→22:00)
[2022-05-01] MEDS: FAMOTIDINE (10MG/ML) 2ML VL IV SCH ×2 (09:21→20:29)
[2022-05-01] MEDS: ASPirin 81 mg TAB PO SCH (09:21)
[2022-05-01] MEDS: FUROSEMIDE 40 MG/4 ML VIAL IV SCH (09:21)
[2022-05-01] MEDS: CARVEDILOL 12.5 MG TAB PO SCH ×2 (09:22→20:31)
[2022-05-01] MEDS: HEPARIN SODIUM (PORCINE) 5000 UNITS/ML 1ML VIAL SC SCH ×2 (09:26→20:30)
[2022-05-01 11:18] LABS: BUN/Creatinine Ratio 19.9; Calcium 9.3 mg/dL (8.5-10.1); Potassium 4.1 mmol/L (3.5-5.1)
[2022-05-01] MEDS: MAGNESIUM SULFATE 1GM/100ML 100 ML IV SCH ×3 (12:42→16:13)
[2022-05-01] MEDS: LIDOCAINE 4MG/ML IV SOLN 500 ML IV SCH (12:45)
[2022-05-01] MEDS: cefTRIAXone 1GM/50ML D5W 50 ML IV SCH (20:30)
[2022-05-01] MEDS: LORazepam 0.5 MG TAB PO PRN (20:30)
[2022-05-02] VITALS (7 sets, daily range): BP systolic 87–118; BP diastolic 49–91
[2022-05-02 04:55] LABS: Basophils # (auto) 0 10 ^3/uL (0-0.2); Basophils % (auto) 0.3 % (0.0-2.0); Eosinophils # (auto) 0.5 10 ^3/uL (0-0.8); Hematocrit 35.8 % (41.0-53.0); Lymphocytes # (auto) 2.1 10 ^3/uL (0.4-5.4); Lymphocytes % (auto) 27.4 % (10.0-50.0); Mean Corpuscular Hemoglobin 28.4 pg (28.0-32.0); Mean Corpuscular Hgb Conc. 33.6 g/dL (32.0-36.0); Mean Corpuscular Volume 84.7 fL (80.0-100.0); Monocytes # (auto) 0.7 10 ^3/uL (0-1.3); Monocytes % (auto) 9.2 % (0.0-12.0); Neutrophils # (auto) 4.3 10 ^3/uL (1.6-8.6); Neutrophils % (auto) 57.1 % (37.0-80.0); Nucleated Red Blood Cells % 0.1 %; Red Blood Cells 4.22 10^6/uL (4.5-5.90); Red Cell Distribution Width 12.8 % (11.8-14.3); White Blood Cell 7.6 10^3/uL (4.4-10.8)
[2022-05-02 05:06] LABS: INR 1.02 (0.9-1.15)
[2022-05-02] MEDS: ACCU-CHEK COMFORT CURVE STRIP VI SCH ×4 (05:07→21:12)
[2022-05-02] MEDS: MEXILETINE HYDROCHLORIDE 150 MG CAP PO SCH ×3 (05:07→21:12)
[2022-05-02] MEDS: methIMAzole 5 MG TAB PO SCH ×3 (05:07→21:12)
[2022-05-02] MEDS: SODIUM CHLOR 0.9% PF (SALINE LOCK) 10ML VIAL/SYR IV SCH ×3 (05:08→21:02)
[2022-05-02 05:11] LABS: Albumin 2.8 g/dL (3.4-5.0); Calcium 8.5 mg/dL (8.5-10.1); Potassium 4.1 mmol/L (3.5-5.1)
[2022-05-02] MEDS: InsuLIN REG 1unit/0.01ml Soln (100units/ml) SC SCH ×4 (05:13→21:13)
[2022-05-02 05:16] LABS: BUN/Creatinine Ratio 20.5; Bilirubin, Total 0.5 mg/dL (0.2-1.0); Total Protein 6.2 g/dL (6.4-8.2)
[2022-05-02] MEDS: HEPARIN SODIUM (PORCINE) 5000 UNITS/ML 1ML VIAL SC SCH (10:24)
[2022-05-02] MEDS: CARVEDILOL 12.5 MG TAB PO SCH ×2 (10:25→21:06)
[2022-05-02] MEDS: FAMOTIDINE (10MG/ML) 2ML VL IV SCH (10:25)
[2022-05-02] MEDS: ASPirin 81 mg TAB PO SCH (10:25)
[2022-05-02] MEDS: FUROSEMIDE 40 MG/4 ML VIAL IV SCH (12:30)
[2022-05-02] MEDS: LIDOCAINE 4MG/ML IV SOLN 500 ML IV SCH (12:45)
[2022-05-02] MEDS: LORazepam 0.5 MG TAB PO PRN (17:56)
[2022-05-03] VITALS (8 sets, daily range): BP systolic 93–107; BP diastolic 64–80
[2022-05-03 05:10] LABS: BUN/Creatinine Ratio 20.8; Calcium 9.3 mg/dL (8.5-10.1); Potassium 4.2 mmol/L (3.5-5.1)
[2022-05-03] MEDS: SODIUM CHLOR 0.9% PF (SALINE LOCK) 10ML VIAL/SYR IV SCH ×3 (05:11→22:19)
[2022-05-03] MEDS: MEXILETINE HYDROCHLORIDE 150 MG CAP PO SCH ×3 (05:51→22:20)
[2022-05-03] MEDS: methIMAzole 5 MG TAB PO SCH ×3 (05:52→22:20)
[2022-05-03] MEDS: ACCU-CHEK COMFORT CURVE STRIP VI SCH ×4 (05:53→22:22)
[2022-05-03] MEDS: InsuLIN REG 1unit/0.01ml Soln (100units/ml) SC SCH ×4 (05:55→22:00)
[2022-05-03] MEDS ORDERED: LIDOCAINE 2%HCL (LOCAL ANESTH.) INJ 20ML MDV ONE (07:43)
[2022-05-03] MEDS ORDERED: VANCOMYCIN HCL 1000 MG VL ONE ×2 (07:46→07:52)
[2022-05-03] MEDS ORDERED: fentaNYL CITRATE 100 MCG/2 ML VL ONE (07:47)
[2022-05-03] MEDS ORDERED: VANCOMYCIN 1GM/250ML 250 ML IV ONE (07:47)
[2022-05-03] MEDS ORDERED: MIDAZOLAM HCL 2MG/2ML 2ml VIAL (1mg/ml) ONE (07:47)
[2022-05-03] MEDS: DOXYCYCLINE 100 MG TAB/CAP PO SCH ×2 (11:13→22:21)
[2022-05-03] MEDS: FUROSEMIDE 40 MG/4 ML VIAL IV SCH (11:13)
[2022-05-03] MEDS: CARVEDILOL 12.5 MG TAB PO SCH ×2 (11:13→22:20)
[2022-05-03] MEDS: ASPirin 81 mg TAB PO SCH (11:13)
[2022-05-03] MEDS: LIDOCAINE 4MG/ML IV SOLN 500 ML IV SCH (12:45)
[2022-05-03] MEDS: VANCOMYCIN 1GM/250ML 250 ML IV SCH (18:36)
[2022-05-03] MEDS ORDERED: ENOXAPARIN SOD 30 MG/0.3 ML SYRINGE SC SCH (22:00)
[2022-05-04] VITALS (11 sets, daily range): BP systolic 80–116; BP diastolic 47–70
[2022-05-04] MEDS: LORazepam 0.5 MG TAB PO PRN (01:18)
[2022-05-04 05:17] LABS: Basophils # (auto) 0.1 10 ^3/uL (0-0.2); Basophils % (auto) 0.7 % (0.0-2.0); Eosinophils # (auto) 0.2 10 ^3/uL (0-0.8); Eosinophils % (auto) 3.1 % (0.0-7.0); Hemoglobin 11.4 g/dL (13.5-17.5); Lymphocytes # (auto) 1.8 10 ^3/uL (0.4-5.4); Lymphocytes % (auto) 22.1 % (10.0-50.0); Mean Corpuscular Hemoglobin 28.4 pg (28.0-32.0); Mean Corpuscular Hgb Conc. 33.5 g/dL (32.0-36.0); Mean Corpuscular Volume 84.6 fL (80.0-100.0); Monocytes # (auto) 0.9 10 ^3/uL (0-1.3); Monocytes % (auto) 10.9 % (0.0-12.0); Neutrophils % (auto) 63.2 % (37.0-80.0); Red Blood Cells 4.02 10^6/uL (4.5-5.90); Red Cell Distribution Width 12.8 % (11.8-14.3); White Blood Cell 7.9 10^3/uL (4.4-10.8)
[2022-05-04 05:28] LABS: BUN/Creatinine Ratio 19.7; Calcium 8.9 mg/dL (8.5-10.1); Magnesium 1.5 mg/dL (1.6-2.6); Potassium 3.9 mmol/L (3.5-5.1)
[2022-05-04 05:31] LABS: Bilirubin, Total 0.7 mg/dL (0.2-1.0); Total Protein 6.3 g/dL (6.4-8.2)
[2022-05-04] MEDS: SODIUM CHLOR 0.9% PF (SALINE LOCK) 10ML VIAL/SYR IV SCH ×2 (06:00→13:56)
[2022-05-04] MEDS: MEXILETINE HYDROCHLORIDE 150 MG CAP PO SCH ×2 (06:32→13:56)
[2022-05-04] MEDS: VANCOMYCIN 1GM/250ML 250 ML IV SCH (06:32)
[2022-05-04] MEDS: ACCU-CHEK COMFORT CURVE STRIP VI SCH ×2 (06:32→11:30)
[2022-05-04] MEDS: methIMAzole 5 MG TAB PO SCH ×2 (06:32→13:56)
[2022-05-04] MEDS: InsuLIN REG 1unit/0.01ml Soln (100units/ml) SC SCH ×2 (06:33→11:30)
[2022-05-04] MEDS: CARVEDILOL 12.5 MG TAB PO SCH (10:58)
[2022-05-04] MEDS: DOXYCYCLINE 100 MG TAB/CAP PO SCH (11:00)
[2022-05-04] MEDS: ASPirin 81 mg TAB PO SCH (13:33)
[2022-05-04] MEDS ORDERED: METH5T PO (13:39)
[2022-05-04] MEDS ORDERED: MEX150C PO (13:39)
[2022-05-04] MEDS ORDERED: FUR20T PO (13:39)
[2022-05-04] MEDS ORDERED: DOX100T PO (13:39)
[2022-05-04] MEDS ORDERED: CAR125T PO (13:39)
[2022-05-04] MEDS ORDERED: POTASSIUM CHL 20 Meq TABLET PO ONE (13:45)
[2022-05-04] MEDS: MAGNESIUM SULFATE 1GM/100ML 100 ML IV SCH ×3 (14:02→18:01)
[2022-05-05] MEDS ORDERED: FUROSEMIDE 20 MG TAB PO SCH (10:00)
== END 2022-05-04 20:00 | disposition home health service (06) | DRG 176 ==
LOC: ER 20:17 → EDUNIT# 20:17 → EDBD 20:17 → OVERFLOW 23:35 → DOU IN ICU 04-30 05:00
PROVIDERS: ADMIT Nurse Practitioner Family; ATTEND Internal Medicine
PROC: 0JPT0PZ Removal of Cardiac Rhythm Related Device from Trunk Subcutaneous Tissue and Fascia, Open Approach (ICD-10-PCS; principal; 2022-05-03)
PROC: 0JH608Z Insertion of Defibrillator Generator into Chest Subcutaneous Tissue and Fascia, Open Approach (ICD-10-PCS; 2022-05-03)
DX: T82.897A Other specified complication of cardiac prosthetic devices, implants and grafts, initial encounter (principal); I21.4 Non-ST elevation (NSTEMI) myocardial infarction; I50.23 Acute on chronic systolic (congestive) heart failure; I47.2 Ventricular tachycardia; I13.0 Hypertensive heart and chronic kidney disease with heart failure and stage 1 through stage 4 chronic kidney disease, or unspecified chronic kidney disease; I48.91 Unspecified atrial fibrillation; I25.10 Atherosclerotic heart disease of native coronary artery without angina pectoris; I25.5 Ischemic cardiomyopathy; E87.5 Hyperkalemia; N18.9 Chronic kidney disease, unspecified; E78.5 Hyperlipidemia, unspecified; D72.829 Elevated white blood cell count, unspecified; Z20.822 Contact with and (suspected) exposure to COVID-19; F20.9 Schizophrenia, unspecified; F41.9 Anxiety disorder, unspecified; Y83.8 Other surgical procedures as the cause of abnormal reaction of the patient, or of later complication, without mention of misadventure at the time of the procedure; E78.00 Pure hypercholesterolemia, unspecified; J44.9 Chronic obstructive pulmonary disease, unspecified; Z79.899 Other long term (current) drug therapy; Z82.71 Family history of polycystic kidney; Z88.8 Allergy status to other drugs, medicaments and biological substances; Z90.49 Acquired absence of other specified parts of digestive tract; Z91.14 Patient's other noncompliance with medication regimen; Z95.1 Presence of aortocoronary bypass graft; Z95.810 Presence of automatic (implantable) cardiac defibrillator; I25.2 Old myocardial infarction; Y92.89 Other specified places as the place of occurrence of the external cause
CPT/HCPCS: 33263; 36415; 71045; 80048; 80053; 80307; 82962; 83036; 83735; 83880; 84443; 84484; 85025; 85610; 87081; 93005; 93306; 96365; 96375; 97116; 97163; 97530; 99152; 99153; 99291; G0378; J0696; J1815; J2250; J2405; J3490; J7060

== ENCOUNTER 2022-07-13 21:16 | Emergency (ER) | payer MEDICAID ==
[~2022-07-13] VITALS: Ht 180.3 cm; Wt 78.0 kg
[~2022-07-13 21:16] MED LIST changes: -AMIO200T33 PO; +CAR125T PO; -CARV3.1240 PO; +DOX100T PO; +FUR20T PO; -FURO1TAB33 PO; -FURO40TA4 PO; -LORA0.5T20 PO; +METH5T PO; +MEX150C PO; -ONDA-188 PO; -POTA10TA51 PO; -POTA1TAB4 PO
[2022-07-13 21:27] VITALS: BP 123/62
[2022-07-13 22:23] LABS: Basophils # (auto) 0 10 ^3/uL (0-0.2); Basophils % (auto) 0.3 % (0.0-2.0); Eosinophils # (auto) 0 10 ^3/uL (0-0.8); Hematocrit 42.6 % (41.0-53.0); Hemoglobin 14.1 g/dL (13.5-17.5); Lymphocytes # (auto) 0.4 10 ^3/uL (0.4-5.4); Lymphocytes % (auto) 3.5 % (10.0-50.0); Mean Corpuscular Hemoglobin 29.5 pg (28.0-32.0); Mean Corpuscular Volume 89.2 fL (80.0-100.0); Monocytes # (auto) 0.6 10 ^3/uL (0-1.3); Monocytes % (auto) 5.2 % (0.0-12.0); Neutrophils # (auto) 11.1 10 ^3/uL (1.6-8.6); Red Blood Cells 4.78 10^6/uL (4.5-5.90); Red Cell Distribution Width 17.8 % (11.8-14.3); White Blood Cell 12.2 10^3/uL (4.4-10.8)
[2022-07-13 22:35] LABS: Albumin 3.6 g/dL (3.4-5.0); BUN/Creatinine Ratio 29.9; Calcium 9.4 mg/dL (8.5-10.1); Potassium 3.8 mmol/L (3.5-5.1)
[2022-07-13 22:46] LABS: Bilirubin, Total 0.6 mg/dL (0.2-1.0)
[2022-07-14 00:14] LABS: Urine WBC None Seen /hpf (0 - 3)
[2022-07-14 00:24] LABS: Urine Bacteria NONE SEEN /hpf (None Seen); Urine Blood 2+ /uL (Negative); Urine Specific Gravity 1.006 (1.001-1.035)
[2022-07-14 00:38] LABS: Alcohol, Urine < 3.0 mg/dL (0-10); Amphetamine Screen, Urine NEGATIVE (NEGATIVE); Barbiturate Scree,Urine NEGATIVE (NEGATIVE); Benzodiazephine Screen, Urine NEGATIVE (NEGATIVE); Cannabinoid Screen, Urine NEGATIVE (NEGATIVE); Cocaine Screen, Urine NEGATIVE (NEGATIVE); Opiate Scree,Urine NEGATIVE (NEGATIVE); Phencyclidine Screen, Urine NEGATIVE (NEGATIVE)
[2022-07-14] MEDS ORDERED: MORPHINE SULFATE INJ 2 MG/ml SYRG IV PRN (07:15)
[2022-07-14] MEDS ORDERED: NITROGLYCERIN 0.4 MG SL TAB SL PRN (07:15)
[2022-07-14] MEDS ORDERED: ASPirin-EC 81 mg tab PO SCH (10:00)
[2022-07-14] MEDS ORDERED: FUROSEMIDE 20 MG TAB PO SCH (10:00)
[2022-07-14] MEDS ORDERED: CARVEDILOL 12.5 MG TAB PO SCH (10:00)
[2022-07-14] MEDS ORDERED: PANTOPRAZOLE 40 MG TAB PO SCH (10:00)
[2022-07-14] MEDS ORDERED: DOXYCYCLINE 100 MG TAB/CAP PO SCH (10:00)
[2022-07-14] MEDS ORDERED: ENOXAPARIN SOD 80 MG/0.8ML SYRINGE SC SCH (10:00)
[2022-07-14] MEDS ORDERED: methIMAzole 5 MG TAB PO SCH (14:00)
[2022-07-14] MEDS ORDERED: MEXILETINE HYDROCHLORIDE 150 MG CAP PO SCH (14:00)
== END 2022-07-14 09:23 | disposition left against medical advice (07) ==
LOC: EDBD 21:16 → ER 21:16 → TELE 07-14 07:01 → UNDOADMIN 07-14 07:01 → ER 07-14 09:23 → TELE-WESTW 07-14 21:05 → TELE 07-14 21:05
DX: I25.810 Atherosclerosis of coronary artery bypass graft(s) without angina pectoris (principal); T82.118A Breakdown (mechanical) of other cardiac electronic device, initial encounter; R00.2 Palpitations; I13.0 Hypertensive heart and chronic kidney disease with heart failure and stage 1 through stage 4 chronic kidney disease, or unspecified chronic kidney disease; N18.9 Chronic kidney disease, unspecified; I50.9 Heart failure, unspecified; E78.5 Hyperlipidemia, unspecified; Z90.49 Acquired absence of other specified parts of digestive tract; Z88.8 Allergy status to other drugs, medicaments and biological substances; Z88.6 Allergy status to analgesic agent; Z20.822 Contact with and (suspected) exposure to COVID-19
CPT/HCPCS: 36415; 71045; 80053; 80307; 81001; 83880; 84484; 85025; 87426; 93005

== ENCOUNTER 2022-09-06 20:45 | Inpatient (IN) | payer MEDICAID ==
[~2022-09-06] VITALS: Ht 180.3 cm; Wt 86.0 kg
[2022-09-06 21:32] LABS: Basophils # (auto) 0 10 ^3/uL (0-0.2); Basophils % (auto) 0.1 % (0.0-2.0); Eosinophils # (auto) 0 10 ^3/uL (0-0.8); Eosinophils % (auto) 0.3 % (0.0-7.0); Hemoglobin 14.7 g/dL (13.5-17.5); Lymphocytes # (auto) 0.7 10 ^3/uL (0.4-5.4); Lymphocytes % (auto) 6.2 % (10.0-50.0); Mean Corpuscular Hemoglobin 31.7 pg (28.0-32.0); Mean Corpuscular Hgb Conc. 34.3 g/dL (32.0-36.0); Mean Corpuscular Volume 92.5 fL (80.0-100.0); Monocytes # (auto) 0.6 10 ^3/uL (0-1.3); Monocytes % (auto) 5.8 % (0.0-12.0); Neutrophils # (auto) 9.7 10 ^3/uL (1.6-8.6); Neutrophils % (auto) 87.6 % (37.0-80.0); Nucleated Red Blood Cells % 0.1 %; Red Blood Cells 4.64 10^6/uL (4.5-5.90); Red Cell Distribution Width 15.8 % (11.8-14.3); White Blood Cell 11.1 10^3/uL (4.4-10.8)
[2022-09-06 21:53] LABS: Albumin 3.6 g/dL (3.4-5.0); BUN/Creatinine Ratio 24.6; Magnesium 2.4 mg/dL (1.6-2.6); Potassium 3.6 mmol/L (3.5-5.1)
[2022-09-06 21:59] LABS: Bilirubin, Total 0.6 mg/dL (0.2-1.0); Total Protein 7.3 g/dL (6.4-8.2)
[2022-09-07] MEDS ORDERED: APIX5TAB PO (10:11)
[2022-09-07] MEDS ORDERED: FURO40TA4 PO (10:11)
[2022-09-07] MEDS ORDERED: LORA0.5T20 PO (10:11)
[2022-09-07] MEDS ORDERED: IVAB1.7T PO (10:11)
[2022-09-07] MEDS ORDERED: BUSP5TAB51 PO (10:11)
[2022-09-07] MEDS ORDERED: DOCUSATE SOD 100 MG CAP PO PRN (10:15)
[2022-09-07] MEDS ORDERED: ONDANSETRON HCL 4 MG/2 ML VIAL IV PRN (10:15)
[2022-09-07] MEDS ORDERED: NITROGLYCERIN 0.4 MG SL TAB SL PRN (10:15)
[2022-09-07] MEDS ORDERED: HYDROcodone-ACET 5/325MG TAB PO PRN (10:15)
[2022-09-07] MEDS ORDERED: ACETAMINOPHEN 325 MG TAB PO PRN (10:15)
[2022-09-07] MEDS ORDERED: DEXTROSE (50%) 50ML SYRG IV PRN (10:15)
[2022-09-07] MEDS ORDERED: MORPHINE SULFATE INJ 2 MG/ml SYRG IV PRN ×2 (10:15)
[2022-09-07] MEDS ORDERED: TEMAZEPAM 15 MG CAP PO PRN (10:15)
[2022-09-07] MEDS: InsuLIN REG 1unit/0.01ml Soln (100units/ml) SC SCH ×3 (11:30→22:38)
[2022-09-07] MEDS: ACCU-CHEK COMFORT CURVE STRIP VI SCH ×3 (11:51→22:28)
[2022-09-07] MEDS ORDERED: MEXILETINE HYDROCHLORIDE 150 MG CAP PO SCH (14:00)
[2022-09-07] MEDS: methIMAzole 5 MG TAB PO SCH ×3 (14:34→22:38)
[2022-09-07 21:55] LABS: Alcohol, Urine < 3.0 mg/dL (0-10); Amphetamine Screen, Urine POSITIVE (NEGATIVE); Barbiturate Scree,Urine NEGATIVE (NEGATIVE); Benzodiazephine Screen, Urine NEGATIVE (NEGATIVE); Cannabinoid Screen, Urine NEGATIVE (NEGATIVE); Cocaine Screen, Urine NEGATIVE (NEGATIVE); Opiate Scree,Urine NEGATIVE (NEGATIVE); Phencyclidine Screen, Urine NEGATIVE (NEGATIVE)
[2022-09-07] MEDS ORDERED: IVABRADINE 5 MG TAB PO SCH (22:00)
[2022-09-07] MEDS: MEXILETINE HYDROCHLORIDE 150 MG CAP PO SCH (22:00)
[2022-09-07] MEDS ORDERED: CARVEDILOL 12.5 MG TAB PO SCH (22:00)
[2022-09-07] MEDS ORDERED: busPIRone HCL 10 MG TAB PO SCH (22:00)
[2022-09-07] MEDS ORDERED: APIXABAN 5 MG TAB PO SCH (22:00)
[2022-09-08 06:00] VITALS: BP 100/63
[2022-09-08] MEDS: methIMAzole 5 MG TAB PO SCH (06:25)
[2022-09-08] MEDS: MEXILETINE HYDROCHLORIDE 150 MG CAP PO SCH (06:25)
[2022-09-08] MEDS: InsuLIN REG 1unit/0.01ml Soln (100units/ml) SC SCH (06:51)
[2022-09-08] MEDS: ACCU-CHEK COMFORT CURVE STRIP VI SCH (06:51)
[2022-09-08] MEDS ORDERED: PANTOPRAZOLE 40 MG TAB PO SCH (10:00)
[2022-09-08] MEDS ORDERED: ASPirin-EC 81 mg tab PO SCH (10:00)
[2022-09-08] MEDS ORDERED: LORazepam 0.5 MG TAB PO SCH (10:00)
[2022-09-08] MEDS ORDERED: FUROSEMIDE 40 MG TAB PO SCH (10:00)
== END 2022-09-08 09:06 | disposition left against medical advice (07) | DRG 207 ==
LOC: ER 20:45 → EDBD 20:45 → TELE 09-07 10:11
PROVIDERS: ADMIT Nurse Practitioner; ATTEND Nurse Practitioner
DX: R00.2 Palpitations (principal); I50.23 Acute on chronic systolic (congestive) heart failure; E11.22 Type 2 diabetes mellitus with diabetic chronic kidney disease; Z79.01 Long term (current) use of anticoagulants; E03.9 Hypothyroidism, unspecified; Z53.29 Procedure and treatment not carried out because of patient's decision for other reasons; I13.0 Hypertensive heart and chronic kidney disease with heart failure and stage 1 through stage 4 chronic kidney disease, or unspecified chronic kidney disease; Z20.822 Contact with and (suspected) exposure to COVID-19; E11.65 Type 2 diabetes mellitus with hyperglycemia; E78.5 Hyperlipidemia, unspecified; F15.10 Other stimulant abuse, uncomplicated; F20.9 Schizophrenia, unspecified; F41.9 Anxiety disorder, unspecified; I25.5 Ischemic cardiomyopathy; I48.91 Unspecified atrial fibrillation; I25.10 Atherosclerotic heart disease of native coronary artery without angina pectoris; J44.9 Chronic obstructive pulmonary disease, unspecified; N18.30 Chronic kidney disease, stage 3 unspecified; Z79.899 Other long term (current) drug therapy; Z87.891 Personal history of nicotine dependence; Z90.49 Acquired absence of other specified parts of digestive tract; Z91.14 Patient's other noncompliance with medication regimen; Z95.1 Presence of aortocoronary bypass graft; Z95.810 Presence of automatic (implantable) cardiac defibrillator; Z88.8 Allergy status to other drugs, medicaments and biological substances; Y83.8 Other surgical procedures as the cause of abnormal reaction of the patient, or of later complication, without mention of misadventure at the time of the procedure; Y92.89 Other specified places as the place of occurrence of the external cause
CPT/HCPCS: 36415; 71045; 80053; 80307; 82962; 83735; 83880; 84443; 84484; 85025; 87426; 93005; G0378; J1815

== ENCOUNTER 2022-09-08 09:40 | Inpatient (IN) | payer MEDICAID ==
[~2022-09-08] VITALS: Ht 185.4 cm; Wt 98.3 kg
[~2022-09-08 09:40] MED LIST changes: +APIX5TAB PO; +BUSP5TAB51 PO; +FURO40TA4 PO; +IVAB1.7T PO; +LORA0.5T20 PO
[2022-09-08 10:38] LABS: Basophils # (auto) 0.1 10 ^3/uL (0-0.2); Basophils % (auto) 0.9 % (0.0-2.0); Eosinophils # (auto) 0.1 10 ^3/uL (0-0.8); Eosinophils % (auto) 1.4 % (0.0-7.0); Hematocrit 43.5 % (41.0-53.0); Hemoglobin 14.8 g/dL (13.5-17.5); Lymphocytes # (auto) 1.8 10 ^3/uL (0.4-5.4); Lymphocytes % (auto) 18.8 % (10.0-50.0); Mean Corpuscular Hemoglobin 31.6 pg (28.0-32.0); Mean Corpuscular Hgb Conc. 34.1 g/dL (32.0-36.0); Mean Corpuscular Volume 92.6 fL (80.0-100.0); Monocytes # (auto) 0.8 10 ^3/uL (0-1.3); Monocytes % (auto) 8.3 % (0.0-12.0); Neutrophils # (auto) 6.7 10 ^3/uL (1.6-8.6); Neutrophils % (auto) 70.6 % (37.0-80.0); Red Cell Distribution Width 15.9 % (11.8-14.3); White Blood Cell 9.4 10^3/uL (4.4-10.8)
[2022-09-08 10:44] LABS: Albumin 3.6 g/dL (3.4-5.0); Calcium 8.9 mg/dL (8.5-10.1); Potassium 3.5 mmol/L (3.5-5.1)
[2022-09-08 10:46] LABS: BUN/Creatinine Ratio 21.8
[2022-09-08 10:48] LABS: Total Protein 6.6 g/dL (6.4-8.2)
[2022-09-08 10:52] LABS: Partial Thromboplastin Time 29.1 sec (24.6-33.4)
[2022-09-08] MEDS ORDERED: DOCUSATE SOD 100 MG CAP PO PRN (13:00)
[2022-09-08] MEDS ORDERED: TEMAZEPAM 15 MG CAP PO PRN (13:00)
[2022-09-08] MEDS ORDERED: ONDANSETRON HCL 4 MG/2 ML VIAL IV PRN (13:00)
[2022-09-08] MEDS ORDERED: HYDROcodone-ACET 5/325MG TAB PO PRN (13:00)
[2022-09-08] MEDS ORDERED: MORPHINE SULFATE INJ 2 MG/ml SYRG IV PRN ×2 (13:00)
[2022-09-08] MEDS ORDERED: NITROGLYCERIN 0.4 MG SL TAB SL PRN (13:00)
[2022-09-08 13:15] LABS: Basophils # (auto) 0.1 10 ^3/uL (0-0.2); Basophils % (auto) 1.2 % (0.0-2.0); Eosinophils # (auto) 0.1 10 ^3/uL (0-0.8); Eosinophils % (auto) 1.3 % (0.0-7.0); Hematocrit 41.9 % (41.0-53.0); Hemoglobin 14.1 g/dL (13.5-17.5); Lymphocytes # (auto) 1.3 10 ^3/uL (0.4-5.4); Lymphocytes % (auto) 14.4 % (10.0-50.0); Mean Corpuscular Hemoglobin 31.1 pg (28.0-32.0); Mean Corpuscular Hgb Conc. 33.6 g/dL (32.0-36.0); Mean Corpuscular Volume 92.7 fL (80.0-100.0); Monocytes # (auto) 0.8 10 ^3/uL (0-1.3); Monocytes % (auto) 8.2 % (0.0-12.0); Neutrophils # (auto) 6.9 10 ^3/uL (1.6-8.6); Neutrophils % (auto) 74.9 % (37.0-80.0); Red Blood Cells 4.53 10^6/uL (4.5-5.90); Red Cell Distribution Width 15.5 % (11.8-14.3); White Blood Cell 9.2 10^3/uL (4.4-10.8)
[2022-09-08 13:30] LABS: INR 0.98 (0.9-1.15); Partial Thromboplastin Time 29.3 sec (24.6-33.4)
[2022-09-08 13:33] LABS: Albumin 3.4 g/dL (3.4-5.0); Calcium 8.6 mg/dL (8.5-10.1); Potassium 3.6 mmol/L (3.5-5.1)
[2022-09-08 13:36] LABS: BUN/Creatinine Ratio 20.1; Bilirubin, Total 0.8 mg/dL (0.2-1.0); Total Protein 6.1 g/dL (6.4-8.2)
[2022-09-08] MEDS: methIMAzole 5 MG TAB PO SCH ×2 (17:15→23:36)
[2022-09-08] MEDS ORDERED: IVABRADINE 5 MG TAB PO SCH (22:00)
[2022-09-08] MEDS: CARVEDILOL 12.5 MG TAB PO SCH (22:00)
[2022-09-08] MEDS: APIXABAN 5 MG TAB PO SCH (23:36)
[2022-09-09 06:05] LABS: Basophils # (auto) 0.1 10 ^3/uL (0-0.2); Basophils % (auto) 1.2 % (0.0-2.0); Eosinophils # (auto) 0.1 10 ^3/uL (0-0.8); Eosinophils % (auto) 1.2 % (0.0-7.0); Hematocrit 41.6 % (41.0-53.0); Lymphocytes # (auto) 1.8 10 ^3/uL (0.4-5.4); Lymphocytes % (auto) 19.2 % (10.0-50.0); Mean Corpuscular Hemoglobin 30.9 pg (28.0-32.0); Mean Corpuscular Hgb Conc. 33.6 g/dL (32.0-36.0); Mean Corpuscular Volume 91.9 fL (80.0-100.0); Monocytes # (auto) 0.9 10 ^3/uL (0-1.3); Monocytes % (auto) 9.4 % (0.0-12.0); Neutrophils # (auto) 6.5 10 ^3/uL (1.6-8.6); Red Blood Cells 4.53 10^6/uL (4.5-5.90); Red Cell Distribution Width 15.3 % (11.8-14.3); White Blood Cell 9.4 10^3/uL (4.4-10.8)
[2022-09-09 06:30] LABS: Albumin 3.4 g/dL (3.4-5.0); Calcium 8.8 mg/dL (8.5-10.1); Potassium 3.6 mmol/L (3.5-5.1)
[2022-09-09 06:33] LABS: BUN/Creatinine Ratio 18.1; Bilirubin, Total 0.9 mg/dL (0.2-1.0); Total Protein 6.6 g/dL (6.4-8.2)
[2022-09-09] MEDS: methIMAzole 5 MG TAB PO SCH ×3 (06:42→22:00)
[2022-09-09 08:49] LABS: Urine Bacteria NONE SEEN /hpf (None Seen); Urine Blood TRACE /uL (Negative); Urine Specific Gravity 1.014 (1.001-1.035); Urine WBC 1 /hpf (0 - 3)
[2022-09-09 09:01] LABS: Alcohol, Urine < 3.0 mg/dL (0-10); Amphetamine Screen, Urine NEGATIVE (NEGATIVE); Barbiturate Scree,Urine NEGATIVE (NEGATIVE); Benzodiazephine Screen, Urine NEGATIVE (NEGATIVE); Cannabinoid Screen, Urine NEGATIVE (NEGATIVE); Cocaine Screen, Urine NEGATIVE (NEGATIVE); Opiate Scree,Urine NEGATIVE (NEGATIVE); Phencyclidine Screen, Urine NEGATIVE (NEGATIVE)
[2022-09-09] MEDS ORDERED: DIGOXIN 0.125 MG TAB PO SCH (10:00)
[2022-09-09] MEDS ORDERED: SOTALOL HCL 80 MG TAB PO SCH (10:00)
[2022-09-09] MEDS: IVABRADINE 5 MG TAB PO SCH (10:52)
[2022-09-09] MEDS: LORazepam 0.5 MG TAB PO SCH (10:53)
[2022-09-09] MEDS: APIXABAN 5 MG TAB PO SCH ×2 (10:53→22:34)
[2022-09-09] MEDS: ASPirin-EC 81 mg tab PO SCH (10:53)
[2022-09-09] MEDS: DIGOXIN 0.125 MG TAB PO SCH (10:54)
[2022-09-09] MEDS: CARVEDILOL 12.5 MG TAB PO SCH ×2 (10:55→22:00)
[2022-09-09] MEDS: FUROSEMIDE 40 MG TAB PO SCH (10:55)
[2022-09-09] MEDS: SOTALOL HCL 80 MG TAB PO SCH ×2 (10:56→22:34)
[2022-09-09] MEDS: MEXILETINE HYDROCHLORIDE 150 MG CAP PO SCH ×2 (15:20→22:35)
[2022-09-09 21:50] VITALS: BP 101/64
[2022-09-10] VITALS (7 sets, daily range): BP systolic 95–105; BP diastolic 56–66
[2022-09-10] MEDS: IVABRADINE 5 MG TAB PO SCH ×3 (01:08→22:32)
[2022-09-10] MEDS: methIMAzole 5 MG TAB PO SCH ×3 (05:22→22:00)
[2022-09-10] MEDS: MEXILETINE HYDROCHLORIDE 150 MG CAP PO SCH ×3 (05:22→22:32)
[2022-09-10] MEDS: LORazepam 0.5 MG TAB PO SCH (08:39)
[2022-09-10] MEDS: SOTALOL HCL 80 MG TAB PO SCH ×2 (08:40→22:31)
[2022-09-10] MEDS: CARVEDILOL 12.5 MG TAB PO SCH ×2 (08:40→22:00)
[2022-09-10] MEDS: ASPirin-EC 81 mg tab PO SCH (08:41)
[2022-09-10] MEDS: APIXABAN 5 MG TAB PO SCH ×2 (08:41→22:32)
[2022-09-10] MEDS: FUROSEMIDE 40 MG TAB PO SCH (08:42)
[2022-09-10] MEDS: ACETAMINOPHEN 325 MG TAB PO PRN (08:43)
[2022-09-10 14:09] LABS: Basophils # (auto) 0.1 10 ^3/uL (0-0.2); Eosinophils # (auto) 0.1 10 ^3/uL (0-0.8); Eosinophils % (auto) 1.7 % (0.0-7.0); Hematocrit 38.5 % (41.0-53.0); Hemoglobin 13.5 g/dL (13.5-17.5); Lymphocytes # (auto) 1.3 10 ^3/uL (0.4-5.4); Mean Corpuscular Hemoglobin 32.3 pg (28.0-32.0); Mean Corpuscular Hgb Conc. 35.1 g/dL (32.0-36.0); Mean Corpuscular Volume 91.9 fL (80.0-100.0); Monocytes # (auto) 0.9 10 ^3/uL (0-1.3); Monocytes % (auto) 10.9 % (0.0-12.0); Neutrophils # (auto) 5.5 10 ^3/uL (1.6-8.6); Neutrophils % (auto) 70.4 % (37.0-80.0); Red Blood Cells 4.19 10^6/uL (4.5-5.90); Red Cell Distribution Width 15.2 % (11.8-14.3); White Blood Cell 7.8 10^3/uL (4.4-10.8)
[2022-09-10 14:24] LABS: Albumin 3.2 g/dL (3.4-5.0); Calcium 8.5 mg/dL (8.5-10.1); Potassium 3.7 mmol/L (3.5-5.1)
[2022-09-10 14:29] LABS: Bilirubin, Total 1.1 mg/dL (0.2-1.0); Total Protein 6.4 g/dL (6.4-8.2)
[2022-09-10 14:30] LABS: BUN/Creatinine Ratio 15.4
[2022-09-11] VITALS (7 sets, daily range): BP systolic 104–111; BP diastolic 63–76
[2022-09-11] MEDS: methIMAzole 5 MG TAB PO SCH ×4 (05:35→22:43)
[2022-09-11] MEDS: MEXILETINE HYDROCHLORIDE 150 MG CAP PO SCH ×3 (05:35→22:42)
[2022-09-11] MEDS: IVABRADINE 5 MG TAB PO SCH ×2 (10:00→22:50)
[2022-09-11] MEDS: ACETAMINOPHEN 325 MG TAB PO PRN (10:06)
[2022-09-11] MEDS: LORazepam 0.5 MG TAB PO SCH (10:06)
[2022-09-11] MEDS: DIGOXIN 0.125 MG TAB PO SCH (10:06)
[2022-09-11] MEDS: APIXABAN 5 MG TAB PO SCH ×2 (10:07→22:42)
[2022-09-11] MEDS: SOTALOL HCL 80 MG TAB PO SCH ×2 (10:15→23:36)
[2022-09-11] MEDS: CARVEDILOL 12.5 MG TAB PO SCH ×2 (10:15→23:35)
[2022-09-11] MEDS: FUROSEMIDE 40 MG TAB PO SCH (10:20)
[2022-09-12 05:00] VITALS: BP 99/66
[2022-09-12] MEDS: methIMAzole 5 MG TAB PO SCH ×3 (05:32→21:23)
[2022-09-12] MEDS: MEXILETINE HYDROCHLORIDE 150 MG CAP PO SCH ×3 (05:32→23:12)
[2022-09-12 08:30] VITALS: BP 101/64
[2022-09-12] MEDS: APIXABAN 5 MG TAB PO SCH ×2 (09:59→21:22)
[2022-09-12] MEDS: CARVEDILOL 12.5 MG TAB PO SCH ×2 (10:00→21:22)
[2022-09-12] MEDS: IVABRADINE 5 MG TAB PO SCH ×2 (10:00→21:22)
[2022-09-12] MEDS: LORazepam 0.5 MG TAB PO SCH (10:00)
[2022-09-12] MEDS: ACETAMINOPHEN 325 MG TAB PO PRN (10:00)
[2022-09-12] MEDS: FUROSEMIDE 40 MG TAB PO SCH (10:02)
[2022-09-12] MEDS: SOTALOL HCL 80 MG TAB PO SCH ×2 (10:33→21:21)
[2022-09-12 13:00] VITALS: BP 103/69
[2022-09-12 17:00] VITALS: BP 103/68
[2022-09-12 20:00] VITALS: BP 116/81
[2022-09-12 22:00] VITALS: BP 116/87
[2022-09-13 05:03] VITALS: BP 104/69
[2022-09-13] MEDS: methIMAzole 5 MG TAB PO SCH ×2 (05:36→15:44)
[2022-09-13] MEDS: MEXILETINE HYDROCHLORIDE 150 MG CAP PO SCH ×2 (07:31→15:44)
[2022-09-13 09:00] VITALS: BP 107/62
[2022-09-13] MEDS ORDERED: DIGO1TAB48 PO (09:26)
[2022-09-13] MEDS ORDERED: FURO40TA4 PO (09:26)
[2022-09-13] MEDS ORDERED: SOTA80TA20 PO (09:26)
[2022-09-13] MEDS: CARVEDILOL 12.5 MG TAB PO SCH (10:00)
[2022-09-13] MEDS: APIXABAN 5 MG TAB PO SCH (10:17)
[2022-09-13] MEDS: FUROSEMIDE 40 MG TAB PO SCH (10:19)
[2022-09-13] MEDS: LORazepam 0.5 MG TAB PO SCH (10:19)
[2022-09-13] MEDS: IVABRADINE 5 MG TAB PO SCH (10:19)
[2022-09-13] MEDS: SOTALOL HCL 80 MG TAB PO SCH (10:19)
[2022-09-13] MEDS: DIGOXIN 0.125 MG TAB PO SCH (10:20)
[2022-09-13 13:00] VITALS: BP 101/65
[2022-09-13 15:50] VITALS: BP 101/65
[2022-09-13 16:30] VITALS: BP 105/74
== END 2022-09-13 17:17 | disposition home health service (06) | DRG 201 ==
LOC: ER 09:45 → TELE 13:01 → TELE-WESTW 09-09 17:15
PROVIDERS: ADMIT Nurse Practitioner; ATTEND Nurse Practitioner
PROC: 4B02XTZ Measurement of Cardiac Defibrillator, External Approach (ICD-10-PCS; principal; 2022-09-09)
DX: I49.8 Other specified cardiac arrhythmias (principal); I50.23 Acute on chronic systolic (congestive) heart failure; E11.22 Type 2 diabetes mellitus with diabetic chronic kidney disease; Z95.1 Presence of aortocoronary bypass graft; I13.0 Hypertensive heart and chronic kidney disease with heart failure and stage 1 through stage 4 chronic kidney disease, or unspecified chronic kidney disease; Z79.01 Long term (current) use of anticoagulants; E05.90 Thyrotoxicosis, unspecified without thyrotoxic crisis or storm; F15.10 Other stimulant abuse, uncomplicated; F20.9 Schizophrenia, unspecified; F41.9 Anxiety disorder, unspecified; E11.65 Type 2 diabetes mellitus with hyperglycemia; N18.30 Chronic kidney disease, stage 3 unspecified; E78.5 Hyperlipidemia, unspecified; I25.10 Atherosclerotic heart disease of native coronary artery without angina pectoris; I25.5 Ischemic cardiomyopathy; I48.91 Unspecified atrial fibrillation; J44.9 Chronic obstructive pulmonary disease, unspecified; Z91.14 Patient's other noncompliance with medication regimen; Z88.8 Allergy status to other drugs, medicaments and biological substances; Z79.899 Other long term (current) drug therapy; Z82.71 Family history of polycystic kidney; Z90.49 Acquired absence of other specified parts of digestive tract; Z95.810 Presence of automatic (implantable) cardiac defibrillator; Z71.51 Drug abuse counseling and surveillance of drug abuser
CPT/HCPCS: 36415; 80053; 80307; 81001; 83735; 83880; 84484; 85025; 85610; 85730; 93005; 93306; G0378